=== PATIENT | male | born 1965 | race Hispanic/Latino ===

== ENCOUNTER 2018-10-29 08:16 | Day surgery (SDC) | payer OTHER ==
--- NOTE | 2018-10-24 10:15 | RAD REPORT ---
EXAM DESCRIPTION: RAD - Chest Pa And Lat (2 Views) - 10/24/2018 9:55 am CLINICAL HISTORY: pre-op Chest pain. COMPARISON: No comparisons FINDINGS: The lungs are clear. Moderate cardiomegaly is seen with multilead pacer/defibrillator mert ce. No displaced fractures. IMPRESSION: Moderate cardiomegaly.
--- NOTE | 2018-10-24 11:15 | EKG ---
Test Date: 2018-10-24 Test Time: 09:42:54 Materials Research Engineer: CALVIN MEASUREMENT RESULTS: Intervals: Rate: 79 OR: 184 QRSD: 116 QT: 436 QTc: 499 [place]: P: 82 OR: 184 QRS: 254 T: 52 INTERPRETIVE STATEMENTS: Electronic atrial pacemaker Right superior axis deviation Pulmonary disease pattern Prolonged QT Abnormal ECG No previous ECG available for comparison Electronically Signed On 10-24-18 11:10:54 CDT by Nelson Barajas
--- OUTSIDE RECORDS SUMMARY | 2018-10-29 08:21 | XMS REPORT ---
:1965 [facility] Address [address] [place] [address] Care Team Providers Name Role Phone Unavailable Unavailable Unavailable Payers Payer Name Policy Type Policy Number Effective Date Expiration Date Problems This patient has no known problems. Allergies, Adverse Reactions, Alerts Allergy Allergy Status Severity Reaction(s) Onset Inactive Treating Comments Name Type Date Date Clinician No Known DA Active U 2018-08 Allergies - 00:00:0 0 No Known DA Active U 2014-02 Allergies -11 00:00:0 0 Medications This patient has no known medications. Results Test Description Test Time Test Comments Text Results Atomic Results Result Comments GLUCOSE BEDSIDE TESTING 2018-08-18 12:35:00 Test Item Value Reference Range Comments GLUCOSE BEDSIDE TESTING (test code=GLUBED) 145 MG/DL 60-99 GLUCOSE BEDSIDE [id number] 06:35:00 Test Item Value Reference Range Comments GLUCOSE BEDSIDE TESTING (test code=GLUBED) 118 MG/DL 60-99 GLUCOSE BEDSIDE [id number] 20:57:00 Test Item Value Reference Range Comments GLUCOSE BEDSIDE TESTING (test code=GLUBED) 161 MG/DL 60-99 GLUCOSE BEDSIDE [id number] 15:56:00 Test Item Value Reference Range Comments GLUCOSE BEDSIDE TESTING (test code=GLUBED) 153 MG/DL 60-99 - US ABDOMEN [id number] 15:18:00 Patient Name: KIM OCASIO Unit No: [id number] EXAMS: CPT CODE: [id number] US ABDOMEN LTD 33667 . GALLBLADDER/LIVER ULTRASOUND TECHNIQUE: Ultrasound of the right upper quadrant was performed. Location code: B2 CLINICAL HISTORY: Elevated bilirubin COMPARISON: Not currently available. FINDINGS: Liver is normal in size. Liver echotexture is minimally increased. No discrete liver mass found. Portal vein diameter normal. Normal hepatopetal flow. Gallbladder unremarkable without gallstones. No pericholecystic fluid or transmural thickening found. Visualized portions of the intra- and extrahepatic biliary tree are of normal caliber with common duct measures 0.2 cm. Pancreas is partially obscured by bowel gas.Right kidney appears normal in size and echotexture without masses or hydronephrosis. It measures 10.2 x 6 x 5 cm. IMPRESSION: 1. No acute abnormality detected. 2. Minimal hepatic steatosis. at 1518 Reported and signed by: Adam Hinton M.D. CC : Jf Hinds Technologist: Jai Cervantes ([facility]) Transcrpt Date/Tm/Trnsp: 08/17/2018 (1518) [email or web address] Orig Print D/T: S: 08/17/2018 (3401) [facility] NAME: KIM OCASIO [id number] PHYS: [place] [address] : 1965 AGE: 53SEX: M LOC: Z.421 A PHONE #: [phone] EXAM DATE: 08/17/2018 STATUS: ADM IN FAX #: [phone] RADIOLOGY NO: PAGE 1 Signed ReportGLUCOSE BEDSIDE [id number] 12:28:00 Test Item Value Reference Range Comments GLUCOSE BEDSIDE TESTING (test code=GLUBED) 154 MG/DL 60-99 GLUCOSE BEDSIDE [id number] 11:17:00 Test Item Value Reference Range Comments GLUCOSE BEDSIDE TESTING (test code=GLUBED) 106 MG/DL 60-99 COMPREHENSIVE METABOLIC [id number] 08:17:00 Test Item Value Reference Range Comments SODIUM (test code=NA) 133 MMOL/L 137-145 POTASSIUM (test code=K) 3.9 MMOL/L 3.5-5.1 CHLORIDE (test code=CL) 94 MMOL/L 98-107 CARBON DIOXIDE (test code=CO2) 25 MMOL/L 22-30 ANION GAP (test code=GAP) 18 MMOL/L 14-24 GLUCOSE (test code=GLU) 119 MG/DL 74-106 BLOOD UREA NITROGEN (test 26 MG/DL 9-20 code=BUN) GLOMERULAR FILTRATION RATE > 60 Reporting units: (test code=GFR) ml/min/1.73 m2 (Modified MDRD Formula)Reference Range: > or=60 ml/min/1.73 m2 CREATININE (test code=CREAT) 1.20 MG/DL 0.66-1.25 TOTAL PROTEIN (test code=PROT) 7.8 G/DL 6.2-7.6 ALBUMIN (test code=ALB) 4.4 G/DL 3.5-5.0 CALCIUM (test code=CA) 8.5 MG/DL 8.4-10.2 BILIRUBIN TOTAL (test 2.6 MG/DL 0.2-1.3 code=BILT) SGOT/AST (test code=AST) 116 UNITS/L 17-59 SGPT/ALT (test code=ALT) 100 UNITS/L 21-72 ALKALINE PHOSPHATASE (test 62 UNITS/L 38-126 code=ALKP) GLUCOSE BEDSIDE [id number] 21:04:00 Test Item Value Reference Range Comments GLUCOSE BEDSIDE TESTING (test code=GLUBED) 201 MG/DL 60-99 GLUCOSE BEDSIDE [id number] 16:50:00 Test Item Value Reference Range Comments GLUCOSE BEDSIDE TESTING (test code=GLUBED) 135 MG/DL 60-99 GLUCOSE BEDSIDE [id number] 13:31:00 Test Item Value Reference Range Comments GLUCOSE BEDSIDE TESTING (test code=GLUBED) 115 MG/DL 60-99 GLUCOSE BEDSIDE [id number] 12:46:00 Test Item Value Reference Range Comments GLUCOSE BEDSIDE TESTING (test code=GLUBED) 152 MG/DL 60-99 - XR RIBS UNI W/CXR 3+V [id number] 08:29:00 Patient Name: KIM OCASIO Unit No: [id number] EXAMS: CPT CODE: [id number] XR RIBS UNI W/CXR 3+[place] [id number] Dictation location B2 Chest and left ribs 6 viewsHISTORY: Status post fall with left chest wall pain COMMENT: Comparison made to an earlier study the same day. The heart is slightly enlarged but stable with left ICD in place. The lungs are clear with no contusion, pneumothorax or hemothorax. No obvious left-sided rib fractures seen. There is no widening of the paravertebral stripe. Overlying soft tissues are intact. IMPRESSION: 1. Stable cardiomegaly with no acute findings in the chest. 2. No left rib fractures. Electronically Signed by Katherin Adams M.D. on 2018 at 0829 Reported and signed by: Katherin Adams M.D. CC: Jf Hinds Technologist: RT Mike(R) Transcrpt Date/Tm/Trnsp : 08/16/2018 (0829) [email or web address] Orig Print D/T: S: 08/16/2018 ( 0832) [facility] NAME: NINFAKIM [address] PHYS: [place] [address] : 1965 AGE: 53 SEX: M LOC: Z.421 A PHONE #: [phone] EXAM DATE: 08/16/2018 STATUS: ADM IN FAX #: [phone] RADIOLOGY NO: PAGE 1 Signed ReportB-TYPE NATRIURETIC [id number] 08:19:00 Test Item Value Reference Range Comments B-TYPE NATRIURETIC PEPTIDE (test code=BNP) 1367.0 PG/ML 0-100 COMPREHENSIVE METABOLIC [id number] 08:13:00 Test Item Value Reference Range Comments SODIUM (test code=NA) 132 MMOL/L 137-145 POTASSIUM (test code=K) 4.1 MMOL/L 3.5-5.1 CHLORIDE (test code=CL) 99 MMOL/L 98-107 CARBON DIOXIDE (test code=CO2) 18 MMOL/L 22-30 ANION GAP (test code=GAP) 19 MMOL/L 14-24 GLUCOSE (test code=GLU) 132 MG/DL 74-106 BLOOD UREA NITROGEN (test 25 MG/DL 9-20 code=BUN) GLOMERULAR FILTRATION RATE > 60 Reporting units: ml/min/1.73 (test code=GFR) m2 (Modified MDRD Formula)Reference Range: > or=60 ml/min/1.73 m2 CREATININE (test code=CREAT) 1.20 MG/DL 0.66-1.25 TOTAL PROTEIN (test code=PROT) 8.1 G/DL 6.2-7.6 ALBUMIN (test code=ALB) 4.3 G/DL 3.5-5.0 CALCIUM (test code=CA) 9.1 MG/DL 8.4-10.2 BILIRUBIN TOTAL (test 2.1 MG/DL 0.2-1.3 code=BILT) SGOT/AST (test code=AST) 97 UNITS/L 17-59 SGPT/ALT (test code=ALT) 51 UNITS/L 21-72 ALKALINE PHOSPHATASE (test 73 UNITS/L 38-126 code=ALKP) [id number] 08:13:00 Test Item Value Reference Range Comments MAGNESIUM (test code=MAG) 1.6 MG/DL 1.6-2.3 - XR CHEST [id number] 07:49:00 Patient Name: KIM OCASIO Unit No: [id number] EXAMS: CPT CODE: [id number] XR CHEST 1V 12946 Location of dictation: B2 Portable chest one view. HISTORY: CHF COMMENT: Compared to 04/10/2018. The heart is enlarged but stable with left ICD in place. The lungs are clear. No lobar consolidation , pneumothorax or effusion is seen. Visualized soft tissues and skeletal structures are unremarkable. There has been nosignificant changes. IMPRESSION: Stable cardiomegaly with no acute findings orchanges in the chest. at 0749 Reported and signed by: Katherin Adams M.D. CC: Jf Kaye Technologist: Jeannie Aponte RT (R) Transcrpt Date/Tm/Trnsp: 08/16/2018 (0749) JosePXC Orig Print D/T: S: 08/16/2018 (0752) [facility] NAME: KIM OCASIO [address] PHYS: [place] [address] : 1965 AGE: 53 SEX: MACCT NO: [id number] LOC: ZIsaias A PHONE #: [phone] EXAM DATE: 08/16/2018 STATUS: ADM IN FAX #: [phone] RADIOLOGY NO: PAGE 1 Signed [id number] 03:11:00 Test Item Value Reference Range Comments TROPONIN-I (test code=TROPI) 0.076 NG/ML 0.012-0.033 GLUCOSE BEDSIDE [id number] 21:23:00 Test Item Value Reference Range Comments GLUCOSE BEDSIDE TESTING (test code=GLUBED) 140 MG/DL 60-99 [id number] 18:16:00 Test Item Value Reference Range Comments TROPONIN-I (test code=TROPI) 0.059 NG/ML 0.012-0.033 GLUCOSE BEDSIDE [id number] 16:26:00 Test Item Value Reference Range Comments GLUCOSE BEDSIDE TESTING (test code=GLUBED) 181 MG/DL 60-99 GLUCOSE BEDSIDE [id number] 13:03:00 Test Item Value Reference Range Comments GLUCOSE BEDSIDE TESTING (test code=GLUBED) 136 MG/DL 60-99 LIPOPROTEIN LDL [id number] 10:50:00 Test Item Value Reference Range Comments LIPOPROTEIN LDL DIRECT (test 46 mg/dL 100-129 code=LDLDIR) ===Reference Interval: mg/dL mmol/L ---------Optimal <100 <2.6Near/above optimal 100-129 2.6-3.3Borderline High 130-159 3.4-4.1High 160-189 4.1-4.9Very High >=190 >=4.9=========This LDL result is a direct measurement.========= [id number] 10:50:00 Test Item Value Reference Range Comments TROPONIN-I (test code=TROPI) 0.061 NG/ML 0.012-0.033 LIPOPROTEIN LDL [id number] 10:06:00 Test Item Value Reference Range Comments LIPOPROTEIN LDL DIRECT (test code=LDLDIR) mg/dL 100-129 [id number] 10:06:00 Test Item Value Reference Range Comments TROPONIN-I (test code=TROPI) 0.061 NG/ML 0.012-0.033 ACUTE HEPATITIS [id number] 09:15:00 Test Item Value Reference Range Comments AB HEPATITIS A IGM (test code=HAVMAB) NEGATIVE NONREACTIVE AG HEPATITIS B SURFACE (test code=HBSAG) NEGATIVE NONREACTIVE AB HEPATITIS B CORE IGM (test code=HBCMAB) NEGATIVE NONREACTIVE AB HEPATITIS C (test code=HCVAB) NEGATIVE NONREACTIVE ACUTE HEPATITIS [id number] 09:03:00 Test Item Value Reference Range Comments AB HEPATITIS A IGM (test code=HAVMAB) NEGATIVE NONREACTIVE AG HEPATITIS B SURFACE (test code=HBSAG) NEGATIVE NONREACTIVE AB HEPATITIS B CORE IGM (test code=HBCMAB) NEGATIVE NONREACTIVE AB HEPATITIS C (test code=HCVAB) NONREACTIVE ACUTE HEPATITIS [id number] 08:57:00 Test Item Value Reference Range Comments AB HEPATITIS A IGM (test code=HAVMAB) NONREACTIVE AG HEPATITIS B SURFACE (test code=HBSAG) NEGATIVE NONREACTIVE AB HEPATITIS B CORE IGM (test code=HBCMAB) NONREACTIVE AB HEPATITIS C (test code=HCVAB) NONREACTIVE URINALYSIS [id number] 08:33:00 Test Item Value Reference Range Comments UA COLOR (test code=COLU) YELLOW YELLOW UA APPEARANCE (test code=APPU) CLEAR CLEAR UA GLUCOSE DIPSTICK (test NORMAL MG/DL NORMAL code=DGLUU) UA BILIRUBIN DIPSTICK (test NEGATIVE MG/DL NEGATIVE code=BILU) UA KETONE DIPSTICK (test NEGATIVE MG/DL NEGATIVE code=KETU) UA SPECIFIC GRAVITY (test 1.015 1.003-1.030 code=SGU) UA BLOOD DIPSTICK (test code=GONZALEZ) NEGATIVE Fabrice/mm3 NEGATIVE UA PH DIPSTICK (test code=MELVA) 5.0 5.0-9.0 UA PROTEIN DIPSTICK (test NEGATIVE MG/DL NEGATIVE code=PROU) UA UROBILINIOGEN DIPSTICK (test NORMAL MG/DL NORMAL code=URO) UA NITRITE DIPSTICK (test NEGATIVE NEGATIVE code=SAADIA) UA LEUKOCYTE ESTERASE DIPSTICK NEGATIVE /mm3 NEGATIVE (test code=LEUU) UA CULTURE NEEDED? (test NEGATIVE, NO CULTURE Culture Chk code=UACULT) Criteria URINALYSIS [id number] 08:27:00 Test Item Value Reference Range Comments UA COLOR (test code=COLU) YELLOW YELLOW UA APPEARANCE (test code=APPU) CLEAR CLEAR UA GLUCOSE DIPSTICK (test code=DGLUU) NORMAL MG/DL NORMAL UA BILIRUBIN DIPSTICK (test code=BILU) NEGATIVE MG/DL NEGATIVE UA KETONE DIPSTICK (test code=KETU) NEGATIVE MG/DL NEGATIVE UA SPECIFIC GRAVITY (test code=SGU) 1.015 1.003-1.030 UA BLOOD DIPSTICK (test code=GONZALEZ) NEGATIVE Fabrice/mm3 NEGATIVE UA PH DIPSTICK (test code=MELVA) 5.0 5.0-9.0 UA PROTEIN DIPSTICK (test code=PROU) NEGATIVE MG/DL NEGATIVE UA UROBILINIOGEN DIPSTICK (test code=URO) NORMAL MG/DL NORMAL UA NITRITE DIPSTICK (test code=SAADIA) NEGATIVE NEGATIVE UA LEUKOCYTE ESTERASE DIPSTICK (test NEGATIVE /mm3 NEGATIVE code=LEUU) UA CULTURE NEEDED? (test code=UACULT) Criteria Culture Chk GLUCOSE BEDSIDE [id number] 08:18:00 Test Item Value Reference Range Comments GLUCOSE BEDSIDE TESTING (test code=GLUBED) 99 MG/DL 60-99 Notified Nurse~ COMPREHENSIVE METABOLIC [id number] 07:52:00 Test Item Value Reference Range Comments SODIUM (test code=NA) 134 MMOL/L 137-145 POTASSIUM (test code=K) 4.0 MMOL/L 3.5-5.1 CHLORIDE (test code=CL) 96 MMOL/L 98-107 CARBON DIOXIDE (test code=CO2) 25 MMOL/L 22-30 GLUCOSE (test code=GLU) 106 MG/DL 74-106 BLOOD UREA NITROGEN (test 16 MG/DL 9-20 code=BUN) GLOMERULAR FILTRATION RATE > 60 Reporting units: ml/min/1.73 (test code=GFR) m2 (Modified MDRD Formula)Reference Range: > or=60 ml/min/1.73 m2 CREATININE (test code=CREAT) 1.10 MG/DL 0.66-1.25 TOTAL PROTEIN (test code=PROT) 7.7 G/DL 6.2-7.6 ALBUMIN (test code=ALB) 4.1 G/DL 3.5-5.0 CALCIUM (test code=CA) 9.0 MG/DL 8.4-10.2 BILIRUBIN TOTAL (test 1.6 MG/DL 0.2-1.3 code=BILT) SGOT/AST (test code=AST) 54 UNITS/L 17-59 SGPT/ALT (test code=ALT) 50 UNITS/L 21-72 ALKALINE PHOSPHATASE (test 73 UNITS/L 38-126 code=ALKP) LIPID PROFILE (CORONARY RISK)2018-08-15 07:52:00 Test Item Value Reference Range Comments TRIGLYCERIDES (test code=TRIG) 126 MG/DL TRIGLYCERIDES REFERENCE RANGE:Normal: <150 mg/dLBorderline High: 150-199 mg/dLHigh: 200-499 mg/dLVery High: >=500 mg/dL CHOLESTEROL (test code=CHOL) 110 MG/DL <200 HDL CHOLESTEROL (test 40 MG/DL 40-59 code=HDL) LIPOPROTEIN LDL (test 52 MG/DL 0-99 code=LDL) OPTIMAL.........<100 mg/dLNEAR OPTIMAL/ABOVE OPTIMAL.........100-129 mg/dL BORDERLINE HIGH.........130-159 mg/dL HIGH.........160-189 mg/dL VERY HIGH.........>/=190 mg/dL THYROID STIMULATING [id number] 07:52:00 Test Item Value Reference Range Comments THYROID STIMULATING HORMONE 2.960 MIU/L 0.465-4.68 Please be aware that bias (test code=TSH) results for TSH may occur forpatient who are taking Biotin supplements. COMPREHENSIVE METABOLIC [id number] 07:34:00 Test Item Value Reference Range Comments SODIUM (test code=NA) 134 MMOL/L 137-145 POTASSIUM (test code=K) 4.0 MMOL/L 3.5-5.1 CHLORIDE (test code=CL) 96 MMOL/L 98-107 CARBON DIOXIDE (test code=CO2) 25 MMOL/L 22-30 GLUCOSE (test code=GLU) 106 MG/DL 74-106 BLOOD UREA NITROGEN (test 16 MG/DL 9-20 code=BUN) GLOMERULAR FILTRATION RATE > 60 Reporting units: ml/min/1.73 (test code=GFR) m2 (Modified MDRD Formula)Reference Range: > or=60 ml/min/1.73 m2 CREATININE (test code=CREAT) 1.10 MG/DL 0.66-1.25 TOTAL PROTEIN (test code=PROT) 7.7 G/DL 6.2-7.6 ALBUMIN (test code=ALB) 4.1 G/DL 3.5-5.0 CALCIUM (test code=CA) 9.0 MG/DL 8.4-10.2 BILIRUBIN TOTAL (test 1.6 MG/DL 0.2-1.3 code=BILT) SGOT/AST (test code=AST) 54 UNITS/L 17-59 SGPT/ALT (test code=ALT) 50 UNITS/L 21-72 ALKALINE PHOSPHATASE (test 73 UNITS/L 38-126 code=ALKP) LIPID PROFILE (CORONARY RISK)2018-08-15 07:34:00 Test Item Value Reference Range Comments TRIGLYCERIDES (test code=TRIG) 126 MG/DL TRIGLYCERIDES REFERENCE RANGE:Normal: <150 mg/dLBorderline High: 150-199 mg/dLHigh: 200-499 mg/dLVery High: >=500 mg/dL CHOLESTEROL (test code=CHOL) 110 MG/DL <200 HDL CHOLESTEROL (test 40 MG/DL 40-59 code=HDL) LIPOPROTEIN LDL (test 52 MG/DL 0-99 code=LDL) OPTIMAL.........<100 mg/dLNEAR OPTIMAL/ABOVE OPTIMAL.........100-129 mg/dL BORDERLINE HIGH.........130-159 mg/dL HIGH.........160-189 mg/dL VERY HIGH.........>/=190 mg/dL THYROID STIMULATING [id number] 07:34:00 Test Item Value Reference Range Comments THYROID STIMULATING HORMONE (test code=TSH) MIU/L 0.465-4.68 GLYCOSYLATED HEMOGLOBIN [id number] 07:24:00 Test Item Value Reference Range Comments GLYCOSYLATED HEMOGLOBIN 6.1 % 4.8-5.9 Any condition that shortens (HA1C) (test code=GLYHGB) erythocyte survival or decreasesmean erythrocyte age (e.g., recovery from acute blood loss,hemolytic anemia) will falsely lower HGBA1c resultsregardless of the method used. HGBA1c results from patientswith HbSS, HbCC, and HbSc must be interpreted with cautiongiven the pathological processes, including anemia,increased red cell turnover, transfusion requirements, thatadversely impact HGBA1c as a marker of long-term glycemiccontrol. Alternative forms of testing such as fructosamineshould be considered for these patients. MEAN BLOOD GLUCOSE (test 128 MG/DL 70-110 code=MBG) COMPREHENSIVE METABOLIC [id number] 07:23:00 Test Item Value Reference Range Comments SODIUM (test code=NA) 134 MMOL/L 137-145 POTASSIUM (test code=K) 4.0 MMOL/L 3.5-5.1 CHLORIDE (test code=CL) 96 MMOL/L 98-107 CARBON DIOXIDE (test code=CO2) 25 MMOL/L 22-30 GLUCOSE (test code=GLU) 106 MG/DL 74-106 BLOOD UREA NITROGEN (test 16 MG/DL 9-20 code=BUN) GLOMERULAR FILTRATION RATE > 60 Reporting units: ml/min/1.73 (test code=GFR) m2 (Modified MDRD Formula)Reference Range: > or=60 ml/min/1.73 m2 CREATININE (test code=CREAT) 1.10 MG/DL 0.66-1.25 TOTAL PROTEIN (test code=PROT) 7.7 G/DL 6.2-7.6 ALBUMIN (test code=ALB) 4.1 G/DL 3.5-5.0 CALCIUM (test code=CA) 9.0 MG/DL 8.4-10.2 BILIRUBIN TOTAL (test 1.6 MG/DL 0.2-1.3 code=BILT) SGOT/AST (test code=AST) 54 UNITS/L 17-59 SGPT/ALT (test code=ALT) 50 UNITS/L 21-72 ALKALINE PHOSPHATASE (test 73 UNITS/L 38-126 code=ALKP) LIPID PROFILE (CORONARY RISK)2018-08-15 07:23:00 Test Item Value Reference Range Comments TRIGLYCERIDES (test code=TRIG) 126 MG/DL TRIGLYCERIDES REFERENCE RANGE:Normal: <150 mg/dLBorderline High: 150-199 mg/dLHigh: 200-499 mg/dLVery High: >=500 mg/dL CHOLESTEROL (test code=CHOL) 110 MG/DL <200 HDL CHOLESTEROL (test 40 MG/DL 40-59 code=HDL) LIPOPROTEIN LDL (test MG/DL 0-99 code=LDL) THYROID STIMULATING [id number] 07:23:00 Test Item Value Reference Range Comments THYROID STIMULATING HORMONE (test code=TSH) MIU/L 0.465-4.68 PROTHROMBIN [id number] 07:19:00 Test Item Value Reference Range Comments PROTHROMBIN TIME PATIENT (test 12.0 SECONDS 9.6-11.6 code=PTP) INTERNATIONAL NORMAL RATIO 1.1 0.8-1.1 The INR is to be used only (test code=INR) for monitoring oral anticoagulanttherapy. INDICATION INR VALUE 1. Prophylaxis, deep venous thrombosis, including high risk surgery. 2.0 - 3.0 2. Prophylaxis, deep venous thrombosis, hip surgery, treatment for deep venous thrombosis or pulmonary prevention of systemic embolism in patients with valvular heart disease, atrial fibrillation, tissue heart valve, or acute myocardial infarction. 2.0 - 3.0 3. Mechanical prosthesis heart valves, recurrent systemic embolism. 3.0 - 4.5 CBC W/AUTO [id number] 07:04:00 Test Item Value Reference Range Comments WHITE BLOOD CELL (test code=WBC) 5.7 K/MM3 3.8-9.8 RED BLOOD CELL (test code=RBC) 4.88 M/MM3 3.95-5.67 HEMOGLOBIN (test code=HGB) 15.4 G/DL 12.4-16.7 HEMATOCRIT (test code=HCT) 43.8 % 35.9-49.5 MEAN CELL VOLUME (test code=MCV) 90 fL 81.7-96.1 MEAN CELL HGB (test code=MCH) 31.6 pg 27.6-33.2 MEAN CELL HGB CONCETRATION (test code=MCHC) 35.2 % 32.9-35.5 RED CELL DISTRIBUTION WIDTH (test code=RDW) 13.2 % 12.1-15.2 PLATELET COUNT (test code=PLT) 126 K/MM3 129-368 MEAN PLATELET VOLUME (test code=MPV) 10.9 fl 7.4-10.4 NEUTROPHIL % (test code=NT%) 62.1 % 43-75 IMMATURE GRANULOCYTE % (test code=IG%) 0.4 % 0.0-2.0 LYMPHOCYTE % (test code=LY%) 21.4 % 14-44 MONOCYTE % (test code=MO%) 14.0 % 4-13 EOSINOPHIL % (test code=EO%) 1.4 % 0-6 BASOPHIL % (test code=BA%) 0.7 % 0-2 NUCLEATED RBC % (test code=NRBC%) 0.0 % 0-1.0 NEUTROPHIL # (test code=NT#) 3.6 K/mm3 2.0-7.6 IMMATURE GRANULOCYTE # (test code=IG#) 0.02 x10 3/uL 0-0.03 LYMPHOCYTE # (test code=LY#) 1.2 K/mm3 1.0-3.8 MONOCYTE # (test code=MO#) 0.80 K/mm3 0.1-0.8 EOSINOPHIL # (test code=EO#) 0.1 K/mm3 0.0-0.2 BASOPHIL # (test code=BA#) 0.04 K/mm3 0.0-0.2 NUCLEATED RBC # (test code=NRBC#) 0.0 K/mm3 0.0-0.1 [id number] 23:29:00 Test Item Value Reference Range Comments DIGOXIN (test code=DIG) 1.5 NG/ML 0.8-2.0 GLYCOSYLATED HEMOGLOBIN [id number] 23:29:00 Test Item Value Reference Range Comments GLYCOSYLATED HEMOGLOBIN 6.3 % 4.8-5.9 Any condition that shortens (HA1C) (test code=GLYHGB) erythocyte survival or decreasesmean erythrocyte age (e.g., recovery from acute blood loss,hemolytic anemia) will falsely lower HGBA1c resultsregardless of the method used. HGBA1c results from patientswith HbSS, HbCC, and HbSc must be interpreted with cautiongiven the pathological processes, including anemia,increased red cell turnover, transfusion requirements, thatadversely impact HGBA1c as a marker of long-term glycemiccontrol. Alternative forms of testing such as fructosamineshould be considered for these patients. MEAN BLOOD GLUCOSE (test 134 MG/DL 70-110 code=MBG) GLUCOSE BEDSIDE [id number] 23:26:00 Test Item Value Reference Range Comments GLUCOSE BEDSIDE TESTING (test code=GLUBED) 120 MG/DL 60-99 Notified Nurse~ BLOOD UREA [id number] 23:12:00 Test Item Value Reference Range Comments BLOOD UREA NITROGEN (test code=BUN) 16 MG/DL 9-20 Comments to Shed Boss: NONEENTER RACE; OtherGLOMERULAR FILTRATION [id number] 23:12:00 Test Item Value Reference Range Comments GLOMERULAR FILTRATION RATE (test > 60 Reporting units: ml/min/1.73 m2 code=GFR) (Modified MDRD Formula)Reference Range: > or=60 ml/min/1.73 m2 Comments to Shed Boss: NONEENTER RACE; [id number] 23:12:00 Test Item Value Reference Range Comments CREATININE (test code=CREAT) 1.10 MG/DL 0.66-1.25 Comments to Shed Boss: NONEENTER RACE; [id number] 22:56:00 Test Item Value Reference Range Comments DIGOXIN (test code=DIG) 1.5 NG/ML 0.8-2.0 GLYCOSYLATED HEMOGLOBIN [id number] 22:56:00 Test Item Value Reference Range Comments GLYCOSYLATED HEMOGLOBIN (HA1C) (test code=GLYHGB) % 4.8-5.9 MEAN BLOOD GLUCOSE (test code=MBG) MG/DL 70-110
[2018-10-29] MEDS ORDERED: NA CHLORIDE 0.9% 1,000 ML ONE (08:42)
[2018-10-29] MEDS ORDERED: GENTAMICIN 80 MG/100 ML BAG 80 MG/100 ML BAG IV ONE (08:42)
[2018-10-29] MEDS ORDERED: PROPOFOL 200 MG/20 ML VIAL IV ONE (10:54)
[2018-10-29] MEDS ORDERED: MIDAZOLAM HCL 2 MG/2 ML INJ ONE (10:54)
[2018-10-29] MEDS ORDERED: ONDANSETRON 4 MG/2 ML VIAL ONE (10:55)
[2018-10-29] MEDS ORDERED: FENTANYL CITR 100 MCG/2 ML ONE (10:56)
[2018-10-29] MEDS ORDERED: EPHEDRINE SULF 50 MG/ML VIAL ONE (12:04)
[2018-10-29 12:36] VITALS: O2SAT 97
[2018-10-29] MEDS ORDERED: OXYBUTYNIN CHLORIDE 5 MG TAB ONE (13:29)
[2018-10-29] MEDS ORDERED: TRAMADOL HCL 50 MG TAB ONE (13:30)
[2018-10-29 13:32] VITALS: BP 90/62; TEMP 97.3
== END 2018-10-29 13:35 | disposition home or self-care (01) ==
LOC: OR 08:16
PROVIDERS: ATTEND Urology
PROC: 0TND8ZZ Release Urethra, Via Natural or Artificial Opening Endoscopic (ICD-10-PCS; principal; 2018-10-29 10:00)
DX: N35.919 Unspecified urethral stricture, male, unspecified site (principal); E11.9 Type 2 diabetes mellitus without complications; I10 Essential (primary) hypertension; I25.10 Atherosclerotic heart disease of native coronary artery without angina pectoris; K74.60 Unspecified cirrhosis of liver; Z95.0 Presence of cardiac pacemaker; Z87.891 Personal history of nicotine dependence; Z83.3 Family history of diabetes mellitus; Z82.49 Family history of ischemic heart disease and other diseases of the circulatory system; Z82.61 Family history of arthritis; Z82.3 Family history of stroke; Z82.5 Family history of asthma and other chronic lower respiratory diseases
CPT/HCPCS: 93005; 82962 ×2; 71046; 52276; J2704; J2250; J3010; J7030; J1580; J2405

== ENCOUNTER 2018-10-29 19:17 | Emergency (ER) | payer OTHER ==
--- OUTSIDE RECORDS SUMMARY | 2018-10-29 19:20 | XMS REPORT ---
:1965 [facility] Address [address] [place] [place] [address] Care Team Providers Name Role Phone Unavailable [...] (test code=GLUBED) 145 MG/DL 60-99 GLUCOSE BEDSIDE [id number] 06:35:00 Test Item Value Reference Range Comments GLUCOSE BEDSIDE TESTING (test code=GLUBED) 118 MG/DL 60-99 GLUCOSE BEDSIDE [id number] 20:57:00 Test Item Value Reference Range Comments GLUCOSE BEDSIDE TESTING (test code=GLUBED) 161 MG/DL 60-99 GLUCOSE BEDSIDE [id number] 15:56:00 Test Item Value Reference Range Comments GLUCOSE BEDSIDE TESTING (test code=GLUBED) 153 MG/DL 60-99 - US ABDOMEN [id number] 15:18:00 Patient Name: KIM OCASIO Unit No: [id number] EXAMS: CPT CODE: [id number] US ABDOMEN LTD 08832 . GALLBLADDER/LIVER ULTRASOUND TECHNIQUE: Ultrasound of the [...] CC : Jf Hinds Technologist: Jai Cervantes ([facility]) Transcrpt Date/Tm/Trnsp: 08/17/2018 (1518) [email or web address] Orig Print D/T: S: 08/17/2018 (6801) [facility] NAME: KIM OCASIO [id number] PHYS: [place] [address] : 1965 AGE: 53SEX: M LOC: Z.421 A PHONE #: [phone] EXAM DATE: 08/17/2018 STATUS: ADM IN FAX #: [phone] RADIOLOGY NO: PAGE 1 Signed ReportGLUCOSE BEDSIDE [id number] 12:28:00 Test Item Value Reference Range Comments GLUCOSE BEDSIDE TESTING (test code=GLUBED) 154 MG/DL 60-99 GLUCOSE BEDSIDE [id number] 11:17:00 Test Item Value Reference Range Comments GLUCOSE BEDSIDE TESTING (test code=GLUBED) 106 MG/DL 60-99 COMPREHENSIVE METABOLIC [id number] 08:17:00 Test Item Value Reference Range Comments [...] (test 62 UNITS/L 38-126 code=ALKP) GLUCOSE BEDSIDE [id number] 21:04:00 Test Item Value Reference Range Comments GLUCOSE BEDSIDE TESTING (test code=GLUBED) 201 MG/DL 60-99 GLUCOSE BEDSIDE [id number] 16:50:00 Test Item Value Reference Range Comments GLUCOSE BEDSIDE TESTING (test code=GLUBED) 135 MG/DL 60-99 GLUCOSE BEDSIDE [id number] 13:31:00 Test Item Value Reference Range Comments GLUCOSE BEDSIDE TESTING (test code=GLUBED) 115 MG/DL 60-99 GLUCOSE BEDSIDE [id number] 12:46:00 Test Item Value Reference Range Comments GLUCOSE BEDSIDE TESTING (test code=GLUBED) 152 MG/DL 60-99 - XR RIBS UNI W/CXR 3+V [id number] 08:29:00 Patient Name: KIM OCASIO Unit No: [id number] EXAMS: CPT CODE: [id number] XR RIBS UNI W/CXR 3+V LT 11002 Dictation location B2 Chest and left ribs [...] Orig Print D/T: S: 08/16/2018 ( 0832) [facility] NAME: NINFAKIM [id number] PHYS: [place] [address] : 1965 AGE: 53 SEX: M LOC: Z.421 A PHONE #: [phone] EXAM DATE: 08/16/2018 STATUS: ADM IN FAX #: [phone] RADIOLOGY NO: PAGE 1 Signed ReportB-TYPE NATRIURETIC [id number] 08:19:00 Test Item Value Reference Range Comments B-TYPE NATRIURETIC PEPTIDE (test code=BNP) 1367.0 PG/ML 0-100 COMPREHENSIVE METABOLIC [id number] 08:13:00 Test Item Value Reference Range Comments [...] ALKALINE PHOSPHATASE (test 73 UNITS/L 38-126 code=ALKP) [id number] 08:13:00 Test Item Value Reference Range Comments MAGNESIUM (test code=MAG) 1.6 MG/DL 1.6-2.3 - XR CHEST [id number] 07:49:00 Patient Name: KIM OCASIO Unit No: [id number] EXAMS: CPT CODE: [id number] XR CHEST 1V 43527 Location of dictation: B2 Portable chest one [...] JosePXC Orig Print D/T: S: 08/16/2018 (0752) [facility] NAME: KIM OCASIO [id number] PHYS: [place] [address] : 1965 AGE: 53 SEX: MACCT NO: [id number] LOC: ZIsaias A PHONE #: [phone] EXAM DATE: 08/16/2018 STATUS: ADM IN FAX #: [phone] RADIOLOGY NO: PAGE 1 Signed [id number] 03:11:00 Test Item Value Reference Range Comments TROPONIN-I (test code=TROPI) 0.076 NG/ML 0.012-0.033 GLUCOSE BEDSIDE [id number] 21:23:00 Test Item Value Reference Range Comments GLUCOSE BEDSIDE TESTING (test code=GLUBED) 140 MG/DL 60-99 [id number] 18:16:00 Test Item Value Reference Range Comments TROPONIN-I (test code=TROPI) 0.059 NG/ML 0.012-0.033 GLUCOSE BEDSIDE [id number] 16:26:00 Test Item Value Reference Range Comments GLUCOSE BEDSIDE TESTING (test code=GLUBED) 181 MG/DL 60-99 GLUCOSE BEDSIDE [id number] 13:03:00 Test Item Value Reference Range Comments GLUCOSE BEDSIDE TESTING (test code=GLUBED) 136 MG/DL 60-99 LIPOPROTEIN LDL [id number] 10:50:00 Test Item Value Reference Range Comments LIPOPROTEIN LDL DIRECT (test 46 mg/dL 100-129 code=LDLDIR) ===Reference Interval: mg/dL mmol/L ---------Optimal <100 <2.6Near/above optimal 100-129 2.6-3.3Borderline High 130-159 3.4-4.1High 160-189 4.1-4.9Very High >=190 >=4.9=========This LDL result is a direct measurement.========= [id number] 10:50:00 Test Item Value Reference Range Comments TROPONIN-I (test code=TROPI) 0.061 NG/ML 0.012-0.033 LIPOPROTEIN LDL [id number] 10:06:00 Test Item Value Reference Range Comments LIPOPROTEIN LDL DIRECT (test code=LDLDIR) mg/dL 100-129 [id number] 10:06:00 Test Item Value Reference Range Comments TROPONIN-I (test code=TROPI) 0.061 NG/ML 0.012-0.033 ACUTE HEPATITIS [id number] 09:15:00 Test Item Value Reference Range Comments AB HEPATITIS A IGM (test code=HAVMAB) NEGATIVE NONREACTIVE AG HEPATITIS B SURFACE (test code=HBSAG) NEGATIVE NONREACTIVE AB HEPATITIS B CORE IGM (test code=HBCMAB) NEGATIVE NONREACTIVE AB HEPATITIS C (test code=HCVAB) NEGATIVE NONREACTIVE ACUTE HEPATITIS [id number] 09:03:00 Test Item Value Reference Range Comments AB HEPATITIS A IGM (test code=HAVMAB) NEGATIVE NONREACTIVE AG HEPATITIS B SURFACE (test code=HBSAG) NEGATIVE NONREACTIVE AB HEPATITIS B CORE IGM (test code=HBCMAB) NEGATIVE NONREACTIVE AB HEPATITIS C (test code=HCVAB) NONREACTIVE ACUTE HEPATITIS [id number] 08:57:00 Test Item Value Reference Range Comments AB HEPATITIS A IGM (test code=HAVMAB) NONREACTIVE AG HEPATITIS B SURFACE (test code=HBSAG) NEGATIVE NONREACTIVE AB HEPATITIS B CORE IGM (test code=HBCMAB) NONREACTIVE AB HEPATITIS C (test code=HCVAB) NONREACTIVE URINALYSIS [id number] 08:33:00 Test Item Value Reference Range Comments [...] NO CULTURE Culture Chk code=UACULT) Criteria URINALYSIS [id number] 08:27:00 Test Item Value Reference Range Comments [...] (test code=UACULT) Criteria Culture Chk GLUCOSE BEDSIDE [id number] 08:18:00 Test Item Value Reference Range Comments GLUCOSE BEDSIDE TESTING (test code=GLUBED) 99 MG/DL 60-99 Notified Nurse~ COMPREHENSIVE METABOLIC [id number] 07:52:00 Test Item Value Reference Range Comments [...] HIGH.........160-189 mg/dL VERY HIGH.........>/=190 mg/dL THYROID STIMULATING [id number] 07:52:00 Test Item Value Reference Range Comments THYROID STIMULATING HORMONE 2.960 MIU/L 0.465-4.68 Please be aware that bias (test code=TSH) results for TSH may occur forpatient who are taking Biotin supplements. COMPREHENSIVE METABOLIC [id number] 07:34:00 Test Item Value Reference Range Comments [...] HIGH.........160-189 mg/dL VERY HIGH.........>/=190 mg/dL THYROID STIMULATING [id number] 07:34:00 Test Item Value Reference Range Comments THYROID STIMULATING HORMONE (test code=TSH) MIU/L 0.465-4.68 GLYCOSYLATED HEMOGLOBIN [id number] 07:24:00 Test Item Value Reference Range Comments [...] (test 128 MG/DL 70-110 code=MBG) COMPREHENSIVE METABOLIC [id number] 07:23:00 Test Item Value Reference Range Comments [...] LDL (test MG/DL 0-99 code=LDL) THYROID STIMULATING [id number] 07:23:00 Test Item Value Reference Range Comments THYROID STIMULATING HORMONE (test code=TSH) MIU/L 0.465-4.68 PROTHROMBIN [id number] 07:19:00 Test Item Value Reference Range Comments [...] systemic embolism. 3.0 - 4.5 CBC W/AUTO [id number] 07:04:00 Test Item Value Reference Range Comments [...] RBC # (test code=NRBC#) 0.0 K/mm3 0.0-0.1 [id number] 23:29:00 Test Item Value Reference Range Comments DIGOXIN (test code=DIG) 1.5 NG/ML 0.8-2.0 GLYCOSYLATED HEMOGLOBIN [id number] 23:29:00 Test Item Value Reference Range Comments [...] (test 134 MG/DL 70-110 code=MBG) GLUCOSE BEDSIDE [id number] 23:26:00 Test Item Value Reference Range Comments GLUCOSE BEDSIDE TESTING (test code=GLUBED) 120 MG/DL 60-99 Notified Nurse~ BLOOD UREA [id number] 23:12:00 Test Item Value Reference Range Comments BLOOD UREA NITROGEN (test code=BUN) 16 MG/DL 9-20 Comments to Rn Call Center: [facility]; OtherGLOMERULAR FILTRATION [id number] 23:12:00 Test Item Value Reference Range Comments GLOMERULAR FILTRATION RATE (test > 60 Reporting units: ml/min/1.73 m2 code=GFR) (Modified MDRD Formula)Reference Range: > or=60 ml/min/1.73 m2 Comments to Rn Call Center: [facility]; [id number] 23:12:00 Test Item Value Reference Range Comments CREATININE (test code=CREAT) 1.10 MG/DL 0.66-1.25 Comments to Rn Call Center: [facility]; [id number] 22:56:00 Test Item Value Reference Range Comments DIGOXIN (test code=DIG) 1.5 NG/ML 0.8-2.0 GLYCOSYLATED HEMOGLOBIN [id number] 22:56:00 Test Item Value Reference Range Comments GLYCOSYLATED HEMOGLOBIN (HA1C) (test code=GLYHGB) % 4.8-5.9 MEAN BLOOD GLUCOSE (test code=MBG) MG/DL 70-110
[2018-10-29] MEDS ORDERED: NACL 0.9% IRR SOLN 2,000 ML IRR ONE (20:32)
--- NOTE | 2018-10-29 21:19 | ER ---
Nurse's Notes [facility] Name: Hipolito Monique Jr Age: 53 yrs Sex: Male : 1965 Arrival Date: 10/29/2018 Time: 19:18 Bed 30 Private MD: Ned Graham Diagnosis: Urethral injury with bleeding Presentation: 10/29 19:37 Presenting complaint: Patient states: had catheter placed today by Dr. Ventura, blood at ak1 head of penis. pt denies pain. pt called Dr. Ventura who informed pt to come to ER to have the catheter assessed. Transition of care: patient was not received from another setting of care. Onset of symptoms was October 29, 2018. Care prior to arrival: None. 19:37 Method Of Arrival: Wheelchair ak1 19:37 Acuity: ZOLTAN 3 ak1 21:02 Risk Assessment: Do you want to hurt yourself or someone else? Patient reports no mg2 desire to harm self or others. Initial Sepsis Screen: Does the patient meet any 2 criteria? No. Patient's initial sepsis screen is negative. Does the patient have a suspected source of infection? No. Patient's initial sepsis screen is negative. Historical: - Allergies: 19:38 No Known Allergies; ak1 - Immunization history:: Flu vaccine status is unknown. - Social history:: Smoking status: unknown. - Family history:: not pertinent. - Ebola Screening: : No symptoms or risks identified at this time. - Hospitalizations: : No recent hospitalization is reported. Screenin:01 Abuse screen: Denies threats or abuse. Denies injuries from another. Nutritional mg2 screening: No deficits noted. Tuberculosis screening: No symptoms or risk factors identified. Fall Risk None identified. Assessment: 20:58 General: Appears in no apparent distress. comfortable, Behavior is calm, cooperative. mg2 Pain: Denies pain. Neuro: Level of Consciousness is awake, alert, obeys commands, Oriented to person, place, time, situation. Cardiovascular: Capillary refill < 3 seconds Patient's skin is warm and dry. Respiratory: Airway is patent Respiratory effort is even, unlabored, Respiratory pattern is regular, symmetrical. GI: No signs and/or symptoms were reported involving the gastrointestinal system. : Urine is clear, on penis bleeding. EENT: No signs and/or symptoms were reported regarding the EENT system. Derm: Skin is intact, is healthy with good turgor, Skin is pink, warm \T\ dry. normal. Musculoskeletal: Circulation, motion, and sensation intact. Capillary refill < 3 seconds. 21:43 Reassessment: Patient denies pain at this time. mg2 Vital Signs: 19:38 BP 85 / 77; Pulse 80; Resp 18; Temp 97.6; Pulse Ox 98% on R/A; Weight 77.56 kg (R); ak1 Height 5 ft. 7 in. (170.18 cm) (R); Pain 0/10; 20:24 BP 92 / 72; Pulse 78; Resp 18; Pulse Ox 100% on R/A; mg2 19:38 Body Mass Index 26.78 (77.56 kg, 170.18 cm) ak1 ED Course: 19:18 Patient arrived in ED. am2 19:18 Ned Graham is Private Physician. am2 19:38 Triage completed. ak1 19:38 Arm band placed on Patient placed in an exam room, Patient notified of wait time. ak1 19:46 Pérez Burgess MD is Attending Physician. rn 20:12 Vik Hernandez RN is Primary Nurse. mg2 20:30 Bladder irrigated via Martin with 1 liter normal saline returned clear fluid Patient mg2 tolerated well. 21:02 Patient has correct armband on for positive identification. Pulse ox on. NIBP on. Door mg2 closed. 21:02 No provider procedures requiring assistance completed. Patient did not have IV access mg2 during this emergency room visit. 21:18 Thony Ventura MD is Referral Physician. rn Administered Medications: No medications were administered Output: 21:44 Urine: 1000ml (Martin); Total: 1000ml. mg2 Outcome: 21:18 Discharge ordered by . rn 21:44 Discharged to home via wheelchair, with family. mg2 21:44 Condition: stable 21:44 Discharge instructions given to patient, family, Instructed on discharge instructions, follow up and referral plans. Demonstrated understanding of instructions, follow-up care. 21:44 Patient left the ED. mg2 Signatures: Pérez Burgess MD MD rn Krenek, Amber, RN RN ak1 Kami Cole am2 Vik Hernandez RN RN mg2 Corrections: (The following items were deleted from the chart) 20:51 20:50 Bladder irrigated via Martin with 1 liter normal saline returned clear fluid mg2 Patient tolerated well mg2
--- NOTE | 2018-10-29 21:19 | EDPHYS ---
Physician Documentation [facility] Name: Hipolito Monique Jr Age: 53 yrs Sex: Male : 1965 Arrival Date: 10/29/2018 Time: 19:18 Bed 30 Private MD: Ned Graham ED Physician Pérez Burgess HPI: 10/29 20:17 This 53 yrs old Male presents to ER via Wheelchair with complaints of Problem rn With Urinary Catheter - bleeding. 20:17 The patient presents with a Valenzuela catheter problem, bleeding. Onset: The rn symptoms/episode began/occurred just prior to arrival. Modifying factors: The symptoms are alleviated by nothing, the symptoms are aggravated by nothing. The patient has not experienced similar symptoms in the past. The patient has been recently seen by a physician:. Reports just had cystoscope done today, had catheter placed, has cirrhosis, and noticed bleeding from urethra when got home, not on blood thinner, no blood in urine bag. No pain. Also reports has been having low blood pressure for last week or so, told by Dr. 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 No syncope/sob/chest pain/abd pain/fever. . Historical: - Allergies: 19:38 No Known Allergies; ak1 - Immunization history:: Flu vaccine status is unknown. - Social history:: Smoking status: unknown. - Family history:: not pertinent. - Ebola Screening: : No symptoms or risks identified at this time. - Hospitalizations: : No recent hospitalization is reported. ROS: 20:17 Constitutional: Negative for fever, chills, and weight loss, Eyes: Negative for injury, rn pain, redness, and discharge, ENT: Negative for injury, pain, and discharge, Neck: Negative for injury, pain, and swelling, Cardiovascular: Negative for chest pain, palpitations, and edema, Respiratory: Negative for shortness of breath, cough, wheezing, and pleuritic chest pain, Abdomen/GI: Negative for abdominal pain, nausea, vomiting, diarrhea, and constipation, Back: Negative for injury and pain, : + bleeding from around valenzuela catheter. MS/Extremity: Negative for injury and deformity, Neuro: Negative for headache, weakness, numbness, tingling, and seizure. Exam: 20:17 Constitutional: This is a well developed, well nourished patient who is awake, alert, rn and in no acute distress. Abdomen/GI: soft, non-tender Male : + small amount of blood at urethral meatus, no blood in valenzuela bag but plenty of urine. Skin: Warm, dry, no petechiae Neuro: Awake and alert, GCS 15, oriented to person, place, time, and situation. Cranial nerves II-XII grossly intact. Motor strength 5/5 in all extremities. Sensory grossly intact. Vital Signs: 19:38 BP 85 / 77; Pulse 80; Resp 18; Temp 97.6; Pulse Ox 98% on R/A; Weight 77.56 kg (R); ak1 Height 5 ft. 7 in. (170.18 cm) (R); Pain 0/10; 20:24 BP 92 / 72; Pulse 78; Resp 18; Pulse Ox 100% on R/A; mg2 19:38 Body Mass Index 26.78 (77.56 kg, 170.18 cm) ak1 MDM: 19:46 Patient medically screened. rn 21:16 Differential diagnosis: Valenzuela catheter problem. Data reviewed: vital signs, nurses rn notes, and as a result, I will discharge patient. Counseling: I had a detailed discussion with the patient and/or guardian regarding: the historical points, exam findings, and any diagnostic results supporting the discharge/admit diagnosis, the need for outpatient follow up, to return to the emergency department if symptoms worsen or persist or if there are any questions or concerns that arise at home. Special discussion: I discussed with the patient/guardian in detail that at this point there is no indication for admission to the hospital. It is understood, however, that if the symptoms persist or worsen the patient needs to return immediately for re-evaluation. Based on the history and exam findings, there is no indication for further emergent testing or inpatient evaluation. I discussed with the patient/guardian the need to see the urologist for further evaluation of the symptoms. ED course: Most likely bleeding from urethra given that bladder irrigation did not show hematuria or clots, urine in bag is clear, possibly minor urethral injury and given cirrhosis patient more likely to bleed, is seeing the urology PROPOSAL CONSULTANT tomorrow, and if worse will return.. 10/29 19:56 Order name: Bladder Irrigation; Complete Time: 20:41 rn Administered Medications: No medications were administered Disposition: 10/29/18 21:18 Discharged to Home. Impression: Urethral injury with bleeding. - Condition is Stable. - Discharge Instructions: Valenzuela Catheter Care, Adult. - Medication Reconciliation Form, Thank You Letter, Antibiotic Education, Prescription Opioid Use form. - Follow up: Thony Ventura MD; When: Tomorrow. - Problem is new. - Symptoms are unchanged. Signatures: Pérez Burgess MD MD rn Laquita Rosa RN RN ak1 Vik Hernandez RN RN mg2 Corrections: (The following items were deleted from the chart) 21:44 21:18 10/29/2018 21:18 Discharged to Home. Impression: Urethral injury with bleeding. mg2 Condition is Stable. Forms are Medication Reconciliation Form, Thank You Letter, Antibiotic Education, Prescription Opioid Use. Follow up: Thony Ventura; When: Tomorrow. Problem is new. Symptoms are unchanged. rn
[2018-10-29 22:03] VITALS: TEMP 97.6
[2018-10-29 22:04] VITALS: BP 92/72; O2SAT 100
== END 2018-10-29 21:44 | disposition home or self-care (01) ==
LOC: ER 19:17
DX: S37.30XA Unspecified injury of urethra, initial encounter (principal); X58.XXXA Exposure to other specified factors, initial encounter; Y93.9 Activity, unspecified; Y92.9 Unspecified place or not applicable; Z98.890 Other specified postprocedural states
CPT/HCPCS: 51700; 99284

== ENCOUNTER 2018-11-03 11:33 | Observation (INO) | payer OTHER ==
--- OUTSIDE RECORDS SUMMARY | 2018-11-03 11:36 | XMS REPORT ---
:1965 [facility] Address [address] [place] [address] Care Team Providers Name Role Phone Unavailable [...] (test code=GLUBED) 145 MG/DL 60-99 GLUCOSE BEDSIDE [id number] 06:35:00 Test Item Value Reference Range Comments GLUCOSE BEDSIDE TESTING (test code=GLUBED) 118 MG/DL 60-99 GLUCOSE BEDSIDE [id number] 20:57:00 Test Item Value Reference Range Comments GLUCOSE BEDSIDE TESTING (test code=GLUBED) 161 MG/DL 60-99 GLUCOSE BEDSIDE [id number] 15:56:00 Test Item Value Reference Range Comments GLUCOSE BEDSIDE TESTING (test code=GLUBED) 153 MG/DL 60-99 - US ABDOMEN [id number] 15:18:00 Patient Name: KIM OCASIO Unit No: [id number] EXAMS: CPT CODE: [id number] US ABDOMEN LTD 57916 . GALLBLADDER/LIVER ULTRASOUND TECHNIQUE: Ultrasound of the [...] CC : Jf Hinds Technologist: Jai Cervantes ([facility]) Transcrpt Date/Tm/Trnsp: 08/17/2018 (1518) [email or web address] Orig Print D/T: S: 08/17/2018 (2471) [facility] NAME: KIM OCASIO [id number] PHYS: [place] [address] : 1965 AGE: 53SEX: M LOC: Z.421 A PHONE #: [phone] EXAM DATE: 08/17/2018 STATUS: ADM IN FAX #: [phone] RADIOLOGY NO: PAGE 1 Signed ReportGLUCOSE BEDSIDE [id number] 12:28:00 Test Item Value Reference Range Comments GLUCOSE BEDSIDE TESTING (test code=GLUBED) 154 MG/DL 60-99 GLUCOSE BEDSIDE [id number] 11:17:00 Test Item Value Reference Range Comments GLUCOSE BEDSIDE TESTING (test code=GLUBED) 106 MG/DL 60-99 COMPREHENSIVE METABOLIC [id number] 08:17:00 Test Item Value Reference Range Comments [...] (test 62 UNITS/L 38-126 code=ALKP) GLUCOSE BEDSIDE [id number] 21:04:00 Test Item Value Reference Range Comments GLUCOSE BEDSIDE TESTING (test code=GLUBED) 201 MG/DL 60-99 GLUCOSE BEDSIDE [id number] 16:50:00 Test Item Value Reference Range Comments GLUCOSE BEDSIDE TESTING (test code=GLUBED) 135 MG/DL 60-99 GLUCOSE BEDSIDE [id number] 13:31:00 Test Item Value Reference Range Comments GLUCOSE BEDSIDE TESTING (test code=GLUBED) 115 MG/DL 60-99 GLUCOSE BEDSIDE [id number] 12:46:00 Test Item Value Reference Range Comments GLUCOSE BEDSIDE TESTING (test code=GLUBED) 152 MG/DL 60-99 - XR RIBS UNI W/CXR 3+V [id number] 08:29:00 Patient Name: KIM OCASIO Unit No: [id number] EXAMS: CPT CODE: [id number] XR RIBS UNI W/CXR 3+V [place] 16362 Dictation location B2 Chest and left ribs [...] Orig Print D/T: S: 08/16/2018 ( 0832) [facility] NAME: NINFAKIM [id number] PHYS: [place] [address] : 1965 AGE: 53 SEX: M LOC: Z.421 A PHONE #: [phone] EXAM DATE: 08/16/2018 STATUS: ADM IN FAX #: [phone] RADIOLOGY NO: PAGE 1 Signed ReportB-TYPE NATRIURETIC [id number] 08:19:00 Test Item Value Reference Range Comments B-TYPE NATRIURETIC PEPTIDE (test code=BNP) 1367.0 PG/ML 0-100 COMPREHENSIVE METABOLIC [id number] 08:13:00 Test Item Value Reference Range Comments [...] ALKALINE PHOSPHATASE (test 73 UNITS/L 38-126 code=ALKP) [id number] 08:13:00 Test Item Value Reference Range Comments MAGNESIUM (test code=MAG) 1.6 MG/DL 1.6-2.3 - XR CHEST [id number] 07:49:00 Patient Name: KIM OCASIO Unit No: [id number] EXAMS: CPT CODE: [id number] XR CHEST 1V 14112 Location of dictation: B2 Portable chest one [...] JosePXC Orig Print D/T: S: 08/16/2018 (0752) [facility] NAME: KIM OCASIO [id number] PHYS: [place] [address] : 1965 AGE: 53 SEX: MACCT NO: [id number] LOC: ZIsaias A PHONE #: [phone] EXAM DATE: 08/16/2018 STATUS: ADM IN FAX #: [phone] RADIOLOGY NO: PAGE 1 Signed [id number] 03:11:00 Test Item Value Reference Range Comments TROPONIN-I (test code=TROPI) 0.076 NG/ML 0.012-0.033 GLUCOSE BEDSIDE [id number] 21:23:00 Test Item Value Reference Range Comments GLUCOSE BEDSIDE TESTING (test code=GLUBED) 140 MG/DL 60-99 [id number] 18:16:00 Test Item Value Reference Range Comments TROPONIN-I (test code=TROPI) 0.059 NG/ML 0.012-0.033 GLUCOSE BEDSIDE [id number] 16:26:00 Test Item Value Reference Range Comments GLUCOSE BEDSIDE TESTING (test code=GLUBED) 181 MG/DL 60-99 GLUCOSE BEDSIDE [id number] 13:03:00 Test Item Value Reference Range Comments GLUCOSE BEDSIDE TESTING (test code=GLUBED) 136 MG/DL 60-99 LIPOPROTEIN LDL [id number] 10:50:00 Test Item Value Reference Range Comments LIPOPROTEIN LDL DIRECT (test 46 mg/dL 100-129 code=LDLDIR) ===Reference Interval: mg/dL mmol/L ---------Optimal <100 <2.6Near/above optimal 100-129 2.6-3.3Borderline High 130-159 3.4-4.1High 160-189 4.1-4.9Very High >=190 >=4.9=========This LDL result is a direct measurement.========= [id number] 10:50:00 Test Item Value Reference Range Comments TROPONIN-I (test code=TROPI) 0.061 NG/ML 0.012-0.033 LIPOPROTEIN LDL [id number] 10:06:00 Test Item Value Reference Range Comments LIPOPROTEIN LDL DIRECT (test code=LDLDIR) mg/dL 100-129 [id number] 10:06:00 Test Item Value Reference Range Comments TROPONIN-I (test code=TROPI) 0.061 NG/ML 0.012-0.033 ACUTE HEPATITIS [id number] 09:15:00 Test Item Value Reference Range Comments AB HEPATITIS A IGM (test code=HAVMAB) NEGATIVE NONREACTIVE AG HEPATITIS B SURFACE (test code=HBSAG) NEGATIVE NONREACTIVE AB HEPATITIS B CORE IGM (test code=HBCMAB) NEGATIVE NONREACTIVE AB HEPATITIS C (test code=HCVAB) NEGATIVE NONREACTIVE ACUTE HEPATITIS [id number] 09:03:00 Test Item Value Reference Range Comments AB HEPATITIS A IGM (test code=HAVMAB) NEGATIVE NONREACTIVE AG HEPATITIS B SURFACE (test code=HBSAG) NEGATIVE NONREACTIVE AB HEPATITIS B CORE IGM (test code=HBCMAB) NEGATIVE NONREACTIVE AB HEPATITIS C (test code=HCVAB) NONREACTIVE ACUTE HEPATITIS [id number] 08:57:00 Test Item Value Reference Range Comments AB HEPATITIS A IGM (test code=HAVMAB) NONREACTIVE AG HEPATITIS B SURFACE (test code=HBSAG) NEGATIVE NONREACTIVE AB HEPATITIS B CORE IGM (test code=HBCMAB) NONREACTIVE AB HEPATITIS C (test code=HCVAB) NONREACTIVE URINALYSIS [id number] 08:33:00 Test Item Value Reference Range Comments [...] NO CULTURE Culture Chk code=UACULT) Criteria URINALYSIS [id number] 08:27:00 Test Item Value Reference Range Comments [...] (test code=UACULT) Criteria Culture Chk GLUCOSE BEDSIDE [id number] 08:18:00 Test Item Value Reference Range Comments GLUCOSE BEDSIDE TESTING (test code=GLUBED) 99 MG/DL 60-99 Notified Nurse~ COMPREHENSIVE METABOLIC [id number] 07:52:00 Test Item Value Reference Range Comments [...] HIGH.........160-189 mg/dL VERY HIGH.........>/=190 mg/dL THYROID STIMULATING [id number] 07:52:00 Test Item Value Reference Range Comments THYROID STIMULATING HORMONE 2.960 MIU/L 0.465-4.68 Please be aware that bias (test code=TSH) results for TSH may occur forpatient who are taking Biotin supplements. COMPREHENSIVE METABOLIC [id number] 07:34:00 Test Item Value Reference Range Comments [...] HIGH.........160-189 mg/dL VERY HIGH.........>/=190 mg/dL THYROID STIMULATING [id number] 07:34:00 Test Item Value Reference Range Comments THYROID STIMULATING HORMONE (test code=TSH) MIU/L 0.465-4.68 GLYCOSYLATED HEMOGLOBIN [id number] 07:24:00 Test Item Value Reference Range Comments [...] (test 128 MG/DL 70-110 code=MBG) COMPREHENSIVE METABOLIC [id number] 07:23:00 Test Item Value Reference Range Comments [...] LDL (test MG/DL 0-99 code=LDL) THYROID STIMULATING [id number] 07:23:00 Test Item Value Reference Range Comments THYROID STIMULATING HORMONE (test code=TSH) MIU/L 0.465-4.68 PROTHROMBIN [id number] 07:19:00 Test Item Value Reference Range Comments [...] systemic embolism. 3.0 - 4.5 CBC W/AUTO [id number] 07:04:00 Test Item Value Reference Range Comments [...] RBC # (test code=NRBC#) 0.0 K/mm3 0.0-0.1 [id number] 23:29:00 Test Item Value Reference Range Comments DIGOXIN (test code=DIG) 1.5 NG/ML 0.8-2.0 GLYCOSYLATED HEMOGLOBIN [id number] 23:29:00 Test Item Value Reference Range Comments [...] (test 134 MG/DL 70-110 code=MBG) GLUCOSE BEDSIDE [id number] 23:26:00 Test Item Value Reference Range Comments GLUCOSE BEDSIDE TESTING (test code=GLUBED) 120 MG/DL 60-99 Notified Nurse~ BLOOD UREA [id number] 23:12:00 Test Item Value Reference Range Comments BLOOD UREA NITROGEN (test code=BUN) 16 MG/DL 9-20 Comments to Marine Steward: NONEENTER RACE; OtherGLOMERULAR FILTRATION [id number] 23:12:00 Test Item Value Reference Range Comments GLOMERULAR FILTRATION RATE (test > 60 Reporting units: ml/min/1.73 m2 code=GFR) (Modified MDRD Formula)Reference Range: > or=60 ml/min/1.73 m2 Comments to Marine Steward: NONEENTER RACE; [id number] 23:12:00 Test Item Value Reference Range Comments CREATININE (test code=CREAT) 1.10 MG/DL 0.66-1.25 Comments to Marine Steward: NONEENTER RACE; [id number] 22:56:00 Test Item Value Reference Range Comments DIGOXIN (test code=DIG) 1.5 NG/ML 0.8-2.0 GLYCOSYLATED HEMOGLOBIN [id number] 22:56:00 Test Item Value Reference Range Comments GLYCOSYLATED HEMOGLOBIN (HA1C) (test code=GLYHGB) % 4.8-5.9 MEAN BLOOD GLUCOSE (test code=MBG) MG/DL 70-110
[2018-11-03 12:25] LABS: Absolute Lymphocytes (CBC) 1.1 K/uL (0.7-4.9); Eosinophils % 0.2 % (0-4.4); Hematocrit 46.2 % (39.6-49.0); Lymphocytes % 14.4 % (15.3-44.8); MPV 9.2 fL (7.6-11.3); Monocytes % 4.5 % (3.3-12.3); RBC Red Blood Cell Count 4.88 M/uL (4.33-5.43)
--- NOTE | 2018-11-03 12:27 | EDPHYS ---
Physician Documentation [facility] Name: Hipolito Monique Jr Age: 53 yrs Sex: Male : 1965 Arrival Date: 11/03/2018 Time: 11:35 Bed 8 Private MD: ED Physician Pérez Burgess HPI: 11/03 12:17 This 53 yrs old Male presents to ER via Wheelchair with complaints of rn Abdominal Swelling. 12:17 The patient presents with abdominal distention. Onset: The symptoms/episode rn began/occurred 2 day(s) ago. The symptoms do not radiate. Associated signs and symptoms: Pertinent positives: anorexia, shortness of breath, Pertinent negatives: blood in stools, fever. The symptoms are described as achy. Modifying factors: The symptoms are alleviated by nothing, the symptoms are aggravated by laying down. The patient has not experienced similar symptoms in the past. The patient has been recently seen by a physician:. Reports seen today at [facility], had complete w/u, plan was to admit for paracentesis, family member requested discharge to come here given his GI/renal/urologist are all here. 2 Days of worsening abd distension and sob when laying flat. Has never had paracentesis. . Historical: - Allergies: 11:49 No Known Allergies; bp - Home Meds: 12:22 nitroglycerin 0.4 mg SL subl 1 tab every 5 minutes [Active]; metformin 500 mg Oral tab bp 1 tab 2 times per day [Active]; carvedilol 3.125 mg oral tab 1 tab 2 times per day [Active]; atorvastatin 10 mg oral tab 1 tab once daily [Active]; furosemide 40 mg Oral tab 1 tab once daily [Active]; losartan 50 mg oral tab 1 tab once daily [Active]; spironolactone 25 mg Oral tab 1 tab once daily [Active]; tamsulosin 0.4 mg oral cp24 1 cap once daily [Active]; aspirin 81 mg Oral TbEC 1 tab once daily [Active]; omeprazole 40 mg Oral cpDR 1 cap 2 times per day [Active]; - PMHx: 11:49 Cirrhosis; bp 12:14 CHF; Hypertension; CAD; Pacemaker; bp - PSHx: 12:14 Appendectomy; bp - Immunization history:: Adult Immunizations up to date. - Social history:: Smoking status: Patient/guardian denies using tobacco. - Ebola Screening: : Patient negative for fever greater than or equal to 101.5 degrees Fahrenheit, and additional compatible Ebola Virus Disease symptoms Patient denies exposure to infectious person Patient denies travel to an Ebola-affected area in the 21 days before illness onset No symptoms or risks identified at this time. - Family history:: not pertinent. - Hospitalizations: : No recent hospitalization is reported. ROS: 12:17 Constitutional: Negative for fever, chills, and weight loss, Eyes: Negative for injury, rn pain, redness, and discharge, Neck: Negative for injury, pain, and swelling, Cardiovascular: Negative for chest pain, palpitations Respiratory: + sob, negative for hemoptysis or cough Abdomen/GI: + abd distension and swelling MS/Extremity: Negative for injury and deformity, Skin: Negative for injury, rash, and discoloration, Neuro: + generalized weakness Exam: 12:17 Constitutional: This is a well developed, well nourished patient who is awake, alert, rn and in no acute distress. Head/Face: Normocephalic, atraumatic. ENT: NO oral swelling or bleeding Cardiovascular: Regular rate and rhythm. No pulse deficits. Respiratory: Dminished bilateral breath sounds Abdomen/GI: soft, + fluid wave, no peritoneal signs MS/ Extremity: Pulses equal, no cyanosis. Neurovascular intact. Full, normal range of motion. Equal circumference. 3+ pitting edema bilateral lower ext Neuro: Awake and alert, GCS 15, oriented to person, place, time, and situation. Vital Signs: 11:49 BP 99 / 78; Pulse 91; Resp 16; Temp 98.7; Pulse Ox 100% ; Weight 81.19 kg; Height 5 ft. bp 7 in. (170.18 cm); 13:00 BP 99 / 81; Pulse 100; Resp 18; Pulse Ox 98% ; bp 11:49 Body Mass Index 28.04 (81.19 kg, 170.18 cm) bp MDM: 11:42 Patient medically screened. rn 12:24 Differential diagnosis: ascites, anasarca, pleural effusion, renal failure. Data rn reviewed: vital signs, nurses notes, old medical records, lab test result(s), radiologic studies, and as a result, I will admit patient. Counseling: I had a detailed discussion with the patient and/or guardian regarding: the historical points, exam findings, and any diagnostic results supporting the discharge/admit diagnosis, lab results, radiology results, the need for further work-up and treatment in the hospital. Admission orders: after a detailed discussion of the patient's condition and case, the admit orders are written by me. ED course: Pt admitted for anasarca to Dr. Hicks, has never had paracentesis before, radiology available for procedures tomorrow and no indication for emergent tap at this point. Lasix given IV. . 11/03 12:04 Order name: CBC with Diff; Complete Time: 12:43 rn 11/03 12:04 Order name: Basic Metabolic Panel; Complete Time: 12:43 rn 11/03 12:04 Order name: IV Start; Complete Time: 12:17 rn 11/03 12:04 Order name: XRAY Chest (1 view); Complete Time: 12:43 rn Administered Medications: 12:18 Drug: Lasix 40 mg Route: IVP; Site: right antecubital; 12:27 Follow up: Response: No adverse reaction Disposition: 11/03/18 12:26 Hospitalization ordered by Tyler Hicks for Inpatient Admission. Preliminary diagnosis are Anasarca, Unspecified cirrhosis of liver, Pleural effusion, not elsewhere classified, Ascites. - Bed requested for Telemetry/MedSurg (Inpatient). - Status is Inpatient Admission. bp - Condition is Stable. - Problem is an ongoing problem. - Symptoms have improved. UTI on Admission? No Signatures: Dispatcher [employer] EDMO Morelia Sánchez RN RN dw Nieto, Roman, MD MD rn Joaquin, Henry, RN RN hj Peltier, Brian, RN RN bp Corrections: (The following items were deleted from the chart) 13:03 12:26 Hospitalization Ordered by Tyler Hicks MD for Inpatient Admission. Preliminary dw diagnosis is Anasarca; Unspecified cirrhosis of liver; Pleural effusion, not elsewhere classified; Ascites. Bed requested for Telemetry/MedSurg (Inpatient). Status is Inpatient Admission. Condition is Stable. Problem is an ongoing problem. Symptoms have improved. UTI on Admission? No. rn 14:02 13:03 11/03/2018 12:26 Hospitalization Ordered by Tyler Hicks MD for Inpatient bp Admission. Preliminary diagnosis is Anasarca; Unspecified cirrhosis of liver; Pleural effusion, not elsewhere classified; Ascites. Bed requested for Telemetry/MedSurg (Inpatient). Status is Inpatient Admission. Condition is Stable. Problem is an ongoing problem. Symptoms have improved. UTI on Admission? No. dw
--- NOTE | 2018-11-03 12:27 | ER ---
Nurse's Notes [facility] Name: Hipolito Monique Jr Age: 53 yrs Sex: Male : 1965 Arrival Date: 11/03/2018 Time: 11:35 Bed 8 Private MD: Diagnosis: Anasarca;Unspecified cirrhosis of liver;Pleural effusion, not elsewhere classified;Ascites Presentation: 11/03 11:48 Presenting complaint: states: HE'S SWOLLEN AND NEEDS TO BE TAPPED. Transition of bp care: patient was not received from another setting of care. Onset of symptoms is unknown. Risk Assessment: Do you want to hurt yourself or someone else? Patient reports no desire to harm self or others. Initial Sepsis Screen: Does the patient meet any 2 criteria? No. Patient's initial sepsis screen is negative. Does the patient have a suspected source of infection? No. Patient's initial sepsis screen is negative. Care prior to arrival: None. 11:48 Method Of Arrival: Wheelchair bp 11:48 Acuity: ZOLTAN 3 bp Triage Assessment: 11:49 General: Appears in no apparent distress. uncomfortable, Behavior is cooperative, bp appropriate for age, anxious. Pain: Complains of pain in abdomen, right leg and left leg. EENT: No deficits noted. Neuro: Level of Consciousness is awake, alert, obeys commands, Oriented to person, place, time, situation, Appropriate for age. Cardiovascular: No deficits noted. Respiratory: Airway is patent Respiratory effort is even, unlabored, Respiratory pattern is regular, symmetrical. GI: Abdomen is distended, Reports lower abdominal pain. : No signs and/or symptoms were reported regarding the genitourinary system. Derm: No deficits noted. Musculoskeletal: Swelling present in right leg and left leg. Historical: - Allergies: 11:49 No Known Allergies; bp - Home Meds: 12:22 nitroglycerin 0.4 mg SL subl 1 tab every 5 minutes [Active]; metformin 500 mg Oral tab bp 1 tab 2 times per day [Active]; carvedilol 3.125 mg oral tab 1 tab 2 times per day [Active]; atorvastatin 10 mg oral tab 1 tab once daily [Active]; furosemide 40 mg Oral tab 1 tab once daily [Active]; losartan 50 mg oral tab 1 tab once daily [Active]; spironolactone 25 mg Oral tab 1 tab once daily [Active]; tamsulosin 0.4 mg oral cp24 1 cap once daily [Active]; aspirin 81 mg Oral TbEC 1 tab once daily [Active]; omeprazole 40 mg Oral cpDR 1 cap 2 times per day [Active]; - PMHx: 11:49 Cirrhosis; bp 12:14 CHF; Hypertension; CAD; Pacemaker; bp - PSHx: 12:14 Appendectomy; bp - Immunization history:: Adult Immunizations up to date. - Social history:: Smoking status: Patient/guardian denies using tobacco. - Ebola Screening: : Patient negative for fever greater than or equal to 101.5 degrees Fahrenheit, and additional compatible Ebola Virus Disease symptoms Patient denies exposure to infectious person Patient denies travel to an Ebola-affected area in the 21 days before illness onset No symptoms or risks identified at this time. - Family history:: not pertinent. - Hospitalizations: : No recent hospitalization is reported. Screenin:52 Abuse screen: Denies threats or abuse. Denies injuries from another. Nutritional bp screening: No deficits noted. Tuberculosis screening: No symptoms or risk factors identified. Fall Risk None identified. Assessment: 11:52 General: SEE TRIAGE NOTE. bp 12:00 GI: Bowel sounds present X 4 quads. Abdomen is tender to palpation X 4 quads. bp 13:40 Reassessment: ADMIT COMPLETED. bp Vital Signs: 11:49 BP 99 / 78; Pulse 91; Resp 16; Temp 98.7; Pulse Ox 100% ; Weight 81.19 kg; Height 5 ft. bp 7 in. (170.18 cm); 13:00 BP 99 / 81; Pulse 100; Resp 18; Pulse Ox 98% ; bp 11:49 Body Mass Index 28.04 (81.19 kg, 170.18 cm) bp ED Course: 11:35 Patient arrived in ED. as 11:37 Pérez Burgess MD is Attending Physician. rn 11:44 Jean-Claude Rojo, ENOCH is Primary Nurse. bp 11:49 Triage completed. bp 11:49 Arm band placed on. bp 11:52 Patient has correct armband on for positive identification. Bed in low position. Call bp light in reach. Side rails up X2. Adult w/ patient. 12:15 Initial lab(s) drawn, by me, sent to lab. Inserted saline lock: 20 gauge in right hj antecubital area, using aseptic technique. Blood collected. 12:19 XRAY Chest (1 view) In Process Unspecified. EDMS 12:26 Tyler Hicks MD is Hospitalizing Provider. rn 13:39 No provider procedures requiring assistance completed. Patient admitted, IV remains in bp place. Administered Medications: 12:18 Drug: Lasix 40 mg Route: IVP; Site: right antecubital; 12:27 Follow up: Response: No adverse reaction Outcome: 12:26 Decision to Hospitalize by Provider. rn 13:41 Admitted to Tele accompanied by tech, family with patient, via wheelchair, room 414, bp with chart, Report called to CLARITA KENDALL 13:41 Condition: stable 13:41 Instructed on the need for admit. 14:02 Patient left the ED. bp Signatures: Dispatcher [employer] EDMS Jayne Wheatley Roman, MD MD rn Joaquin, Henry, RN RN hj Peltier, Brian, RN RN bp
[2018-11-03] MEDS ORDERED: FUROSEMIDE 40 MG/4 ML VIAL ONE (12:28)
--- NOTE | 2018-11-03 12:34 | RAD REPORT ---
EXAM DESCRIPTION: RAD - Chest Single View - 11/03/2018 12:19 pm CLINICAL HISTORY: DYSPNEA Chest pain. COMPARISON: Chest Pa And Lat (2 Views) dated 10/24/2018 FINDINGS: Portable technique limits examination quality. The lungs are grossly clear. The heart is moderately enlarged in size with a multi lead pacer/defibri llator device. No displaced fractures. IMPRESSION: Moderate cardiomegaly.
[2018-11-03 14:09] VITALS: BMI 27.8
--- NOTE | 2018-11-03 15:23 | P.HP ---
Certification for Inpatient Patient admitted to: Inpatient With expected LOS: >2 Midnights Practitioner: I am a practitioner with admitting privileges, knowledge of patient current condition, hospital course, and medical plan of care. Services: Services provided to patient in accordance with Admission requirements found in Title 42 Section 412.3 of the Code of Federal Regulations Patient History Date of Service: 11/03/18 Reason for admission: Anasarca, History of Present Illness: This is a 53-year-old male with history of CKD stage 4, liver cirrhosis, CHF admitted for anasarca. Patient went to [place] and they wanted to admit patient for paracentesis. Patient stated that he would like to come to the hospital here as all his doctors are here. He therefore left the ER there came to our hospital. He states that he started with abdominal pain, tightness and SOB since 3 am this morning. He states that he was recently diagnosed with Liver failure, secondary to alcohol. In the ER, patient was hemodynamically stable. Labs were remarkable for sodium of 133 and creatinine of 1.44. There were no liver function tests done. Chest x-ray with moderate cardiomegaly. He was given Lasix IV times 40 mg x1. At the time of my exam, pt was AAOx3, in no acute distress and hemodynamically stable. He was admitted for anasarca, ascites for further management and possible paracentesis Allergies No Known Allergies Allergy (Verified 10/24/18 09:17) Home Medications: Aspirin [Gera Chewable] 81 mg PO DAILY 11/03/18 Atorvastatin Calcium [Lipitor] 10 mg PO BEDTIME 11/03/18 Carvedilol [Coreg] 3.125 mg PO BID 11/03/18 Furosemide [Lasix] 40 mg PO DAILY 11/03/18 Losartan Potassium [Cozaar] 50 mg PO DAILY 11/03/18 Metformin ER [Glucophage ER] 500 mg PO BID 11/03/18 Omeprazole [Prilosec] 40 mg PO BID 11/03/18 Spironolactone [Aldactone] 25 mg PO DAILY 11/03/18 Tamsulosin [Flomax] 0.4 mg PO BEDTIME 11/03/18 Review of Systems 10-point ROS is otherwise unremarkable Physical Examination - Vital Signs Temperature: 96.7 F Blood Pressure: 94/78 Pulse: 88 Respirations: 18 Pulse Ox (%): 91 - Physical Exam General: Alert, In no apparent distress, Oriented x3 HEENT: Atraumatic, PERRLA, Mucous membr. moist/pink, EOMI, Sclerae nonicteric Neck: Supple, 2+ carotid pulse no bruit, No LAD, Without JVD or thyroid abnormality Respiratory: Clear to auscultation bilaterally, Normal air movement Cardiovascular: Regular rate/rhythm, Normal S1 S2, Edema Gastrointestinal: Normal bowel sounds, Distended, Tenderness Integumentary: No rashes Neurological: Normal speech, Normal tone, Normal affect Lymphatics: No axilla or inguinal lymphadenopathy - Studies Laboratory Data (last 24 hrs) 11/03/18 12:15: Sodium 133 L, Potassium 4.0, BUN 28 H, Creatinine 1.44 H, Glucose 167 H 11/03/18 12:15: WBC 7.7, Hgb 15.4, Hct 46.2, Plt Count 151 L Assessment and Plan - Problems (Diagnosis) (1) Anasarca Current Visit: Yes Status: Acute Plan: Likely secondary to cirrhosis/liver failure - diuresis with IV Lasix, low dose. - daily weights - fluid restriction - strict I&Os (2) Ascites Current Visit: Yes Status: Acute Plan: - abdominal ultrasound, pending - plan for paracentesis tomorrow with IR - GI not available on-call today. 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 labs (5) CAD (coronary artery disease) Current Visit: No Status: Chronic Qualifiers: Coronary Disease-Associated Artery/Lesion type: [place] artery [place] vs. transplanted heart: platinum heart Associated angina: without angina Qualified Code(s): I25.10 - Atherosclerotic heart disease of platinum coronary artery without angina pectoris (6) CHF (congestive heart failure) Current Visit: Yes Status: Acute Plan: - no echo noted on file. Will order echo to evaluate further for congestive heart failure as well as the anasarca. Qualifiers: Heart failure type: unspecified Heart failure chronicity: unspecified Qualified Code(s): I50.9 - Heart failure, unspecified (7) Pacemaker Current Visit: No Status: Chronic (8) CKD (chronic kidney disease) Current Visit: No Status: Chronic Plan: Creatinine at baseline. Patient sees Dr. Patel. Possible nephrology consultation, if needed. Qualifiers: Chronic kidney disease stage: stage 3 (moderate) Qualified Code(s): N18.3 - Chronic kidney disease, stage 3 (moderate) - Plan DVT prophylaxis: Heparin GI prophylaxis: Protonix Diet: Heart healthy, NPO after midnight Disposition: Admit to floor. Pending paracentesis. Possible GI consultation, if available - Advance Directives Does patient have a Living Will: No Does patient have a Durable POA for Healthcare: No Time Spent Managing Pts Care (In Minutes): 55
[2018-11-03 15:36] LABS: Urine Appearance CLEAR; Urine Bilirubin NEGATIVE (NEG); Urine Blood TRACE (NEG); Urine Color YELLOW; Urine Glucose NEGATIVE (NEG); Urine Protein NEGATIVE (NEG); Urine Urobilinogen 0.2 mg/dL (0.2-1.0)
[2018-11-03 15:43] LABS: Urine Microscopic Reflex ORDER UMIC
[2018-11-03 15:51] LABS: Protime INR 1.76
[2018-11-03 15:53] LABS: Urine Bacteria <20 /HPF (NONE SEEN); Urine Culture Reflex Order NOT NEEDED; Urine RBC <5 /HPF (NONE SEEN)
[2018-11-03 16:01] LABS: Albumin 3.4 g/dL (3.4-5.0); Bilirubin Total 2.5 mg/dL (0.2-1.0); Protein, Total 7.2 g/dL (6.4-8.2)
[2018-11-03] MEDS: HEPARIN 5000 UNIT/ML 1 ML VIAL SQ SCH (17:00)
[2018-11-03] MEDS: TRAMADOL HCL 50 MG TAB PO PRN (18:40)
[2018-11-03] MEDS ORDERED: CARVEDILOL 3.125 MG TAB PO SCH (21:00)
[2018-11-03] MEDS ORDERED: HOME MED 1 EA UNK (Omeprazole [Prilosec] 40 MG) PO SCH (21:00)
[2018-11-03 21:16] LABS: Magnesium 1.6 mg/dL (1.8-2.4); Phosphorus 4.2 mg/dL (2.5-4.9); Troponin I 0.05 ng/mL (0.0-0.045)
[2018-11-03] MEDS ORDERED: Magnesium Sulfate 2gm IVPB 2 G/50 ML BAG IV ONE (21:21)
[2018-11-03] MEDS: TAMSULOSIN 0.4 MG SR CAP PO SCH (22:00)
[2018-11-03] MEDS: PANTOPRAZOLE 40MG TABLET PO SCH (22:01)
[2018-11-03] MEDS: ATORVASTATIN 10 MG TAB PO SCH (22:01)
[2018-11-03] MEDS: CARVEDILOL 3.125 MG TAB PO SCH (22:01)
[2018-11-04] MEDS: HEPARIN 5000 UNIT/ML 1 ML VIAL SQ SCH ×3 (00:09→16:51)
[2018-11-04] MEDS ORDERED: BENZONATATE 100 MG CAP PO PRN (02:24)
[2018-11-04 04:59] LABS: Basophils % 0.4 % (0-1.3); Eosinophils % 0.1 % (0-4.4); Hematocrit 43.7 % (39.6-49.0); Lymphocytes % 12.6 % (15.3-44.8); MPV 9.4 fL (7.6-11.3); Monocytes % 4.3 % (3.3-12.3)
[2018-11-04 05:09] LABS: Albumin 3.5 g/dL (3.4-5.0); Bilirubin Total 2.9 mg/dL (0.2-1.0); Magnesium 2.2 mg/dL (1.8-2.4); Potassium 4.7 mmol/L (3.5-5.1); Protein, Total 7.1 g/dL (6.4-8.2)
[2018-11-04] MEDS ORDERED: PANTOPRAZOLE 40MG TABLET PO SCH (06:30)
[2018-11-04] MEDS: LOSARTAN POTASSIUM 50 MG TABLET PO SCH (09:00)
[2018-11-04] MEDS: ASPIRIN 81 MG CHEWABLE TABLET PO SCH (09:00)
[2018-11-04] MEDS: SPIRONOLACTONE 25 MG TABLET PO SCH (09:00)
[2018-11-04] MEDS ORDERED: LOSARTAN POTASSIUM 50 MG TABLET PO SCH (09:00)
[2018-11-04] MEDS: CARVEDILOL 3.125 MG TAB PO SCH ×2 (09:00→20:58)
[2018-11-04] MEDS ORDERED: SPIRONOLACTONE 25 MG TABLET PO SCH (09:00)
[2018-11-04] MEDS: PANTOPRAZOLE 40MG TABLET PO SCH ×2 (09:00→21:00)
[2018-11-04] MEDS ORDERED: FUROSEMIDE 40 MG TABLET PO SCH (09:00)
--- NOTE | 2018-11-04 11:14 | RAD REPORT ---
EXAM DESCRIPTION: US - Abdomen Exam Complete - 11/04/2018 9:03 am CLINICAL HISTORY: Ascites, abdominal pain COMPARISON: CT study October 03 FINDINGS: Gallbladder size is normal. No gallstones are identified. No measurable quantity of sludge . Gallbladder wall thickening is present up to 6 mm. This can be from chronic cholecystitis, acalculo us cholecystitis or as a secondary response to liver parenchymal disease (favored). Common bile duct is normal with no common duct stone identified. Patient did not appear to be in pain with transducer pressure over the gallbladder. Ascites is present in the right upper quadrant and adjacent to the spleen. Quantity matches the CT st udy. There is subtle nodularity to the liver capsule. A focal liver parenchymal lesion is not identif iable. Liver is 13- 14 cm in maximum dimension. Doppler evaluation shows hepatopetal portal flow with no thrombus or suspicious waveform. Spleen is 10 cm with no focal splenic abnormality. The pancreas is partially obscured but grossly normal. On CT imaging a pancreatic mass is not suspec dunia. No hydronephrosis or suspicious mass in either kidney. Proximal aorta is obscured. There was no dilatation on CT imaging. No IVC abnormality. No bulky lymph adenopathy. IMPRESSION: Subtle nodularity of the liver capsule with no focal liver lesion. No portal vein abnorm ality. Ascites similar to the prior CT study. Gallbladder wall thickening without stone or sludge identifiable. This can be from chronic cholecysti tis, acalculous cholecystitis or as a secondary response to liver parenchymal disease (favored).
--- NOTE | 2018-11-04 11:52 | ECHO ---
HEIGHT: 5 ft 7 in WEIGHT: 177 lb 8 oz DATE OF STUDY: 11/04/[address]: Colt Genao MD 2-DIMENSIONAL: YES M.MODE: YES DOPPLER: YES COLOR FLOW: YES TDS: NO PORTABLE: NO DEFINITY: NO BUBBLE STUDY: NO DIAGNOSIS: ARRHYTHMIA CARDIAC HISTORY: CATHERIZATION: NO SURGERY: NO PROSTHETIC VALVE: NO PACEMAKER: YES MEASUREMENTS (cm) DIASTOLIC (NORMALS) SYSTOLIC (NORMALS) IVSd 0.9 (0.6-1.2) LA Diam 6.3 (1.9-4.0) LVEF 13% LVIDd 7.3 (3.5-5.7) LVIDs 6.9 (2.0-3.5) %FS 6% LVPWd 0.9 (0.6-1.2) Ao Diam 2.9 (2.0-3.7) 2 DIMENSIONAL ASSESSMENT: RIGHT ATRIUM: DILATED LEFT ATRIUM: DILATED RIGHT VENTRICLE: DILATED, PACEMAKER LEFT VENTRICLE: DILATED TRICUSPID VALVE: NORMAL MITRAL VALVE: NORMAL PULMONIC VALVE: NORMAL AORTIC VALVE: NORMAL PERICARDIAL EFFUSION: NONE AORTIC ROOT: NORMAL LEFT VENTRICULAR WALL MOTION: SEVERE GLOBAL HYPOKINESIS. DOPPLER/COLOR FLOW: MILD MITRAL AND TRICUSPID REGURGITATION. ESTIMATED RIGHT VENTRICULAR SYSTOLIC PRESSURE 70 mmHg. SEVERE PULMONARY HYPERTENSION. COMMENTS: FOUR CHAMBER DILATATION. SEVERELY DEPRESSED LEFT VENTRICULAR EJECTION FRACTION. MILD MITRAL AND TRICUSPID REGURGITATION. SEVERE PULMONARY HYPERTENSION. PACEMAKER CATHETER IN RIGHT VENTRICLE. TECHNOLOGIST: Rachel LOPZE
[2018-11-04] MEDS ORDERED: ALBUMIN HUMAN 25% 100 ML IV SCH (12:00)
--- NOTE | 2018-11-04 14:13 | P.PN ---
Subjective Date of Service: 11/04/18 Chief Complaint: Anasarca, Patient seen and examined at bedside. family at bedside. Chart reviewed and case discussed with nursing staff. Reports improved abdominal pain and tenderness. States lower extremity swelling worsen than yesterday Denies any chest pain at this time, shortness of breath, dizziness, syncopal/ presyncopal Patient was pending paracentesis, unable to be done as not enough fluid Review of Systems 10-point ROS is otherwise unremarkable Physical Examination - Vital Signs Temperature: 97.4 F Blood Pressure: 93/69 Pulse: 98 Respirations: 18 Pulse Ox (%): 99 - Physical Exam General: Alert, In no apparent distress, Oriented x3 HEENT: Atraumatic, PERRLA, EOMI Neck: Supple, JVD not distended Respiratory: Clear to auscultation bilaterally, Normal air movement Cardiovascular: Regular rate/rhythm, Normal S1 S2, Edema (Bilateral lower extremity edema, pitting 1-2+) Gastrointestinal: Normal bowel sounds, Distended, Ascites, Tenderness (Mild) Musculoskeletal: No tenderness Integumentary: No rashes Neurological: Normal speech, Normal tone, Normal affect Lymphatics: No axilla or inguinal lymphadenopathy Assessment And Plan - Current Problems (Diagnosis) (1) Anasarca Current Visit: Yes Status: Acute Plan: Improving; Likely secondary to cirrhosis/liver failure - diuresis with IV Lasix, low dose. - daily weights - fluid restriction - strict I&Os (2) Ascites Current Visit: Yes Status: Acute Plan: - paracentesis not done today as not enough fluid to drain. - GI not available on-call today. We will attempt to get GI consult tomorrow, if available Qualifiers: Ascites type: due to alcoholic cirrhosis Qualified Code(s): K70.31 - Alcoholic cirrhosis of liver with ascites (3) Cirrhosis of liver Current Visit: Yes Status: Chronic Plan: - he will need continued outpatient follow up with GI/hypnotherapist - hepatitis panel negative on 08/15/18 (chart review, external records) Qualifiers: Hepatic cirrhosis type: alcoholic cirrhosis (4) Hyponatremia Current Visit: Yes Status: Acute Plan: Improving; Continue gentle hydration - monitor via a.m. labs (5) CAD (coronary artery disease) Current Visit: No Status: Chronic Qualifiers: Coronary Disease-Associated Artery/Lesion type: [place] artery [place] vs. transplanted heart: creek heart Associated angina: without angina Qualified Code(s): I25.10 - Atherosclerotic heart disease of [place] coronary artery without angina pectoris (6) CHF (congestive heart failure) Current Visit: Yes Status: Acute Plan: - 10/25/18: ECHO with global hypokinesis, EF of 13%, sever pulmonary hypertension Cardiology consulted Qualifiers: Heart failure type: unspecified Heart failure chronicity: unspecified Qualified Code(s): I50.9 - Heart failure, unspecified (7) Pacemaker Current Visit: No Status: Chronic (8) CKD (chronic kidney disease) Current Visit: No Status: Chronic Plan: Creatinine at baseline. Patient sees Dr. Patel. Possible nephrology consultation, if needed. Qualifiers: Chronic kidney disease stage: stage 3 (moderate) Qualified Code(s): N18.3 - Chronic kidney disease, stage 3 (moderate) - Plan DVT prophylaxis: Heparin GI prophylaxis: Protonix Diet: Heart healthy, NPO after midnight Disposition: Pending improvement. Continue IV diuresis. Possible GI consultation, if available
[2018-11-04] MEDS: MIDODRINE HCL 5 MG TABLET PO SCH ×2 (17:32→21:00)
[2018-11-04] MEDS ORDERED: FUROSEMIDE 20 MG/ 2ML VIAL IV ONE (18:50)
[2018-11-04] MEDS: TAMSULOSIN 0.4 MG SR CAP PO SCH (21:00)
[2018-11-04] MEDS: ATORVASTATIN 10 MG TAB PO SCH (21:00)
[2018-11-04] MEDS: TRAMADOL HCL 50 MG TAB PO PRN (21:05)
[2018-11-05] MEDS: HEPARIN 5000 UNIT/ML 1 ML VIAL SQ SCH ×2 (01:50→09:31)
[2018-11-05 08:53] VITALS: O2SAT 98
[2018-11-05] MEDS ORDERED: FUROSEMIDE 40 MG/4 ML VIAL IV SCH (09:00)
[2018-11-05] MEDS: CARVEDILOL 3.125 MG TAB PO SCH (09:27)
[2018-11-05] MEDS: LOSARTAN POTASSIUM 50 MG TABLET PO SCH (09:27)
[2018-11-05] MEDS: PANTOPRAZOLE 40MG TABLET PO SCH (09:28)
[2018-11-05] MEDS: MIDODRINE HCL 5 MG TABLET PO SCH ×2 (09:28→14:00)
[2018-11-05] MEDS: ASPIRIN 81 MG CHEWABLE TABLET PO SCH (09:28)
[2018-11-05] MEDS: SPIRONOLACTONE 25 MG TABLET PO SCH (09:29)
[2018-11-05] MEDS ORDERED: FUROSEMIDE 20 MG/ 2ML VIAL IV SCH (11:00)
[2018-11-05 12:08] VITALS: BP 114/78
[2018-11-05 13:10] VITALS: TEMP 97.8
--- NOTE | 2018-11-06 03:11 | DS ---
Date of Discharge: 11/05/2018 Consultants: Dr. Montgomery with Cardiology. Admitting Diagnoses: 1.Anasarca. 2.Ascites. 3.Cirrhosis of the liver. 4.Hyponatremia. 5.Coronary artery disease, [place] artery, [place] heart, without angina. 6.Congestive heart failure. 7.Status post pacemaker. 8.Chronic kidney disease, stage 3. Discharge Diagnoses: 1.Anasarca secondary to liver cirrhosis. 2.Ascites. 3.Cirrhosis of the liver. The patient is following up with [facility] as an outpatient in [place] . 4.Hyponatremia, improved. 5.Diabetes mellitus, type 2, [id number], with hyperglycemia. 6.Status post pacemaker. 7.Coronary artery disease, [place] artery, [place] heart, without angina. 8.Congestive heart failure, systolic, EF 13%. 9.Severe pulmonary hypertension. 10.Chronic kidney disease, stage 3. Hospital Course: The patient is a 53-year-old male with chronic kidney disease, liver cirrhosis, CHF , admitted for anasarca. The patient had some shortness of breath. His workup revealed sodium of 13 3, creatinine of 1.44. He was started on Lasix. He had some improvement in his symptoms. The patie nt's daily weight was obtained. His fluid balance was negative. The patient's creatinine remained s table. He did have some electrolyte abnormalities, which were corrected including sodium and magnesi um. White count remained normal. The patient was unable to have paracentesis as the abdominal ultra sound did not show enough amount for it to be drained. The patient also had some incidental gallblad lady wall thickening from acalculous cholecystitis or secondary response of liver parenchymal disease. There were no hepatoportal flow abnormalities, no thrombus. The patient's echocardiogram showed an EF of 13% with severe global hypokinesis. He has been following with Cardiology as outpatient, sees Dr. Oneill in [place]. I spoke with him. The patient would benefit from Entresto, however, art cope is on an ARB, be which will need to be switched over. Speaking with Dr. Oneill, he is okay wit h switching the patient an on an-outpatient basis. The patient also was found to have severe pulmona ry hypertension. The patient was seen by Dr. Montgomery in the hospital setting. His medications were adjusted. Aldactone and beta-ridge dose were adjusted. The patient's urine culture did not show a ny growth. The patient was doing well. He was stable. He was then cleared for discharge from consu ltant's standpoint. He was then sent home in a stable condition. Activity: As tolerated. Medications: As per medication reconciliation list. Followup: Follow up with touch up painter hand, Dr. Oneill, in 1 week. Follow up with GI, Dr. Leblanc, on November 10. The patient already has an appointment. Follow up with primary care physician in 2-3 days. Diet: Low-sodium, free-fluid restricted diet. Physical Examination: General: Awake, alert, oriented x3. No acute distress. CV: S1, S2. Peripheral pulses present. Respiratory: Moving air well bilaterally. No wheezing. Abdomen: Soft, nontender, nondistended. Positive bowel sounds. Minimal ascites. Extremities: No clubbing or cyanosis. The patient does have lower extremity edema. Neuro: Nonfocal. SA/MODL Voice ID: [id number] Report ID: [id number]
--- NOTE | 2018-11-07 01:43 | CON ---
Date of Consultation: 11/05/2018 Reason For Consultation: Admitted to Dr. Ogden's service on 11/03/2018 with marielos. History Of Present Illness: The patient is a 53-year-old [place] male, who has an ejection fr action of 13%, chronic systolic congestive heart failure. He has a history of hypertension, CAD, sta tus post pacemaker. He has a history of cirrhosis and diabetes. Came in with anasarca, pedal edema, PND, orthopnea. He is being diuresed now and is feeling better. Denies any chest pain, palpitation s, or syncope. Past Medical History: As stated above. Allergies: NONE. Review of Systems: Negative. Social History: Negative. Family History: Noncontributory. Medications: Include metformin, Coreg, Lipitor, Lasix, losartan, Aldactone, Flomax, and Prilosec. Physical Examination: Vital Signs: Stable. Afebrile. HEENT: Negative. Neck: Supple with no bruit. Chest: Some rales at both bases. Cardiac: Regular rhythm and rate. S3 gallops. No murmurs or rubs. Abdomen: Obese. Extremities: 1+ edema. Diagnostic Data: Chest x-ray shows cardiomegaly. Laboratory evaluation is rather unremarkable. Impression And Plan: 1.Acute on chronic systolic congestive heart failure. 2.Hypertension. 3.Coronary artery disease. 4.Status post pacemaker. 5.Cirrhosis. 6.Dyslipidemia. 7.Diabetes. I agree with Mr. Monique treatment. He has an ejection fraction of 13%. No further recommendation at this point other than what we are doing in the hospital. However, when he goes home, I think incr easing the Coreg dose and the Aldactone dose is reasonable. He can go home whenever it is okay with Dr. Ogden and we will see him in the office as an outpatient. FARHANA/ADALGISA Voice ID: [id number] Report ID: [id number]
== END 2018-11-05 14:40 | disposition home health service (06) ==
LOC: ER 11:33 → INTOOBSV 12:51 → ERHOLD 12:51 → 4TH 13:41
PROVIDERS: ADMIT Family Medicine; ATTEND Family Medicine
DX: I13.0 Hypertensive heart and chronic kidney disease with heart failure and stage 1 through stage 4 chronic kidney disease, or unspecified chronic kidney disease (principal); E11.22 Type 2 diabetes mellitus with diabetic chronic kidney disease; E11.65 Type 2 diabetes mellitus with hyperglycemia; N18.3 Chronic kidney disease, stage 3 (moderate); I50.23 Acute on chronic systolic (congestive) heart failure; I25.10 Atherosclerotic heart disease of native coronary artery without angina pectoris; Z95.0 Presence of cardiac pacemaker; E87.1 Hypo-osmolality and hyponatremia; R18.8 Other ascites; R60.1 Generalized edema; K70.31 Alcoholic cirrhosis of liver with ascites; I27.20 Pulmonary hypertension, unspecified
CPT/HCPCS: 93306; 87088; 87045; 85025 ×2; 87086; 80048; 36415 ×2; 83735 ×2; 84100; 85610; 82962 ×8; 80076; 87046; 84484; 80053; 71045; 76700; 94760 ×5; 96374; 99285; J1940 ×3; J1644 ×4; J3475; G0378 ×2; 81003; 81015; P9047